=== PATIENT | female | born 1935 | race American Indian/Alaskan Native ===

== ENCOUNTER 2022-02-17 15:34 | Inpatient (IN) | payer MEDICARE ==
--- NOTE | 2022-02-17 16:06 | Emergency Department Report ---
HPI - General Chief Complaint: Syncope Time Seen by Provider: 02/17/22 15:47 - HPI HPI: Room 2 The patient is a 86-year-old female present with chief complaint of syncope. Per EMS patient was in the shower being bathed by the home health nurse when gio morgan suddenly went limp. Health nurse was able to catch the patient and did not allow her to fall to the ground. There was no seizure activity noted. EMS was called and arrived on scene at 1506 to find the patient slumped over in a chair being supported by the home health aide with incomprehensible speech. EMS states during this time although the patient speech was incomprehensible the patient was following commands but only with her right side. EMS states that 1518 the patient speech was clear and at that time she was able to move both sides of her body equally ED Past Medical Hx - Past Medical History Previous Medical History?: No Additional medical history: Unknown - Surgical History Hx Pacemaker: Yes - Family History Family history: no significant - Social History Smoking Status: Never Smoker Substance Use Type: None ED Review of Systems ROS: Stated complaint: SYNCOPE Other details as noted in HPI Constitutional: no symptoms reported Eyes: denies: eye pain ENT: denies: throat pain Respiratory: no symptoms reported Cardiovascular: denies: chest pain Endocrine: no symptoms reported Gastrointestinal: denies: abdominal pain Genitourinary: denies: dysuria Musculoskeletal: denies: back pain Neurological: weakness. denies: headache Physical Exam - Physical Exam Vital Signs: Vital Signs 02/17/22 15:38 Temperature 98.2 F Pulse Rate 62 Respiratory 14 Rate Blood Pressure 152/90 [Left] O2 Sat by Pulse 97 Oximetry Physical Exam: GENERAL: The patient is well-developed well-nourished female lying on stretcher not appearing to be in acute distress. [] HEENT: Normocephalic. Atraumatic. Extraocular motions are intact. Patient has moist mucous membranes. NECK: Supple. Trachea midline CHEST/LUNGS: Clear to auscultation. There is no respiratory distress noted. HEART/CARDIOVASCULAR: Regular. There is no tachycardia. There is no gallop rub or murmur. ABDOMEN: Abdomen is soft, nontender. Patient has normal bowel sounds. There is no abdominal distention. SKIN: There is no rash. There is no edema. There is no diaphoresis. NEURO: The patient is awake, alert, and oriented. The patient is cooperative. The patient has no focal neurologic deficits. The patient has normal speech. Cranial nerves II through XII grossly intact. Patient moves all extremities well. Patient able to hold either upper extremity at 45 degree angle for 10- second count without drift. Patient able to hold either lower extremity of 30 degree angle for 5-second count without drift. GCS 15. Patient admits to equal sensation in the face bilaterally in upper extremities bilaterally but when asked about the legs the patient states she does not know. MUSCULOSKELETAL: There is no evidence of acute injury. ED Course Vital Signs 02/17/22 15:38 Temperature 98.2 F Pulse Rate 62 Respiratory 14 Rate Blood Pressure 152/90 [Left] O2 Sat by Pulse 97 Oximetry - Consultations Consultation #1: 02/17/22 16:20 Case discussed with [id number]. Recommends CTAs and admission for remainder of work-up 02/17/22 17:51 CTA results discussed with telemetry neurologist-no change in plan except otherwise we will recommend a statin in addition to aspirin. ED Medical Decision Making - Lab Data Result diagrams: 02/17/22 17:13 02/17/22 17:13 - Radiology Data Radiology results: report reviewed (CT head), image reviewed (CT head) interpreted by me: [facility] [address] [place] [address] Cat Scan Report Signed Patient: GLORIA STOCK MR#: [id number] : 1935 Acct:[id number] Age/Sex: 86 / F ADM Date: 02/17/22 Loc: ED Attending Dr: Ordering Physician: SHAN MCKEON MD Date of Service: 02/17/22 Procedure(s): CT head/brain wo con Accession Number(s): [id number] cc: SHAN MCKEON MD CT BRAIN: 02/17/2022 INDICATION / CLINICAL INFORMATION: Syncope, transient left-sided weakness. COMPARISON: None available. FINDINGS: BRAIN/INTRACRANIAL STRUCTURES: Unenhanced CT images of the brain demonstrate no evidence of acute abnormality. Ventricles and sulci are prominent in size, consistent with prominent age- related atrophic change. Chronic white matter hypoattenuation is present throughout the cerebral hemispheric white matter. There is no evidence of acute ischemic injury, hemorrhage, or mass. There are no abnormal extra- axial fluid collections. Atherosclerotic vascular calcifications are present in the distal internal carotid arteries and vertebral arteries. EXTRACRANIAL STRUCTURES: Unremarkable. IMPRESSION: No acute abnormality. Chronic and age-related changes All CT scans at this location are performed using dose reduction to ALARA by means of automated exposure control. Signer Name: Epi Calloway MD Signed: 02/17/2022 4:23 PM Workstation Name: [id number] Transcribed By: AO Dictated By: Epi Calloway MD Electronically Authenticated By: Epi Calloway MD Signed Date/Time: 02/17/221622 DD/ 19 TD/TT: - Differential Diagnosis TIA, syncope, dysrhythmia Critical care attestation.: If time is entered above; I have spent that time in minutes in the direct care of this critically ill patient, excluding procedure time. ED Disposition Clinical Impression: TIA (transient ischemic attack) Disposition: ADMITTED INPATIENT Is pt being admited?: Yes Does the pt Need Aspirin: Yes Condition: Fair Referrals: PRIMARY CARE, [Primary Care Provider] - 3-5 Days Time of Disposition: 18:16 (Care transferred to hospitalist (Dr. Villarreal))
[2022-02-17] MEDS ORDERED: ASPIRIN 325 MG TAB PO ONE (16:18)
--- NOTE | 2022-02-17 16:22 | Consultation ---
History of Present Illness Consult date: 02/17/22 History of present illness: [facility] Consult Note # Demographics Consult Type: Acute Stroke Level 1 (0-4.5 hrs) Patient Location: Emergency Room First Name: yamil Last Name: wesley Date of : 1935 Age: 86 Gender: Female Facility: [facility] Time of Initial Page (Eastern Time): 02/17/2022, 15:53 Time of Return Call (Eastern Time): 02/17/2022, 15:53 # HPI Chief Complaint: weakness (focal) Syncope History: Per ER staff, the home health aide reportedly found patient down with syncope & reported transient right-sided weakness. Unknown last known well time. Patient provided limited history, & there was no information in EMR or family available at bedside. The ER Physician stated, though that the home health aide was giving the patient a shower when she suddenly went completely limp. The patient came to & when EMS arrived around 3pm "was speaking gibberish." Symptoms reportedly resolved. Last Known Normal: I have collected independent history specific to time last normal or last known well. We have collaborated with the provider and at this time, we have the most current timeline with the information that is available. Possibly around 3pm Duration: resolved minutes hours # Scores Time of exam and NIHSS ( Time): 02/17/2022, 15:58 Level of Consciousness 1a: [0] = Alert; keenly responsive LOC Questions 1b: [2] = Answers neither correctly LOC Commands 1c: [0] = Performs both tasks correctly Best Gaze 2: [0] = Normal Visual 3: [0] = No visual loss Facial Palsy 4: [0] = Normal symmetrical movements Motor Arm Left 5a: [0] = No drift Motor Arm Right 5b: [0] = No drift Motor Leg Left 6a: [0] = No drift Motor Leg Right 6b: [0] = No drift Limb Ataxia 7: [0] = Absent Sensory 8: [0] = Normal Best Language 9: [0] = No aphasia Dysarthria 10: [0] = Normal Extinction and Inattention 11: [0] = No abnormality NIHSS Total: 2 Modified Radford Scale (mRS) pre-stroke: [0] = No Symptoms Modified Radford Scale total: 0 VAN Screening: Negative # Exam Vitals: 98.2 SBP: 152 DBP: 90 Mental Status: awake follows commands Did not state age or month; hard of hearing Language: normal speech # ROS Pulmonary: no shortness of breath Cardiovascular: no chest pain # Data Glucose: Pending Time Head CT personally read by me (Eastern Time): 02/17/2022, 16:[address]: no bleed preliminarily reviewed by me, please refer to radiology read for official reading # Assessment Impression: Syncope, ? TIA with reported transient right-sided weakness # Plan Thrombolytic/Intervention: NOT IV Thrombolysis or IA Intervention candidate Thrombolytic Exclusion (< 3 hour window): time of onset unclear non-disabling deficit Thrombolytic Exclusion: Unknown last known well initially, potentially 3pm; syncopal prodrome atypical for stroke presentation; symptoms reportedly resolved Target Blood Pressure: SBP < 220 Orthostatic vital sign Labs: ABG Ammonia B12 CBC comprehensive metabolic panel ESR hemoglobin A1c lipid panel thiamine troponin TSH urine drug screen ua Infectious work-up Imaging: (urgency: STAT): CT Angiogram Head and CT Angiogram Neck AND call back with results if abnormal Imaging: (urgency: routine): MRI Brain without contrast Diagnostic Test: echo without bubble study EEG Therapy/Evaluation: NPO until swallow evaluation PT/OT evaluation speech/swallow consultation Medication: aspirin 81 mg daily start statin with goal of LDL < 70 Given syncopal episode, low clinical suspicion for ischemia - consider starting low-dose aspirin pending diagnostic results DVT Prophylaxis: SCD chemical DVT prophylaxis Other: If patient has any neurological deterioration please call me back immediately permissive hypertension telemetry monitoring would not pursue stroke work-up if MRI is negative I have discussed my recommendations with the referring provider Avoid/ manage delirium triggers Disposition: admit # Demographics First Name: yamil Last Name: wesley Facility: [facility] Medications and Allergies Allergies Allergy/AdvReac Type Severity Reaction Status Date / Time Unable to Assess Allergy Verified 02/17/22 15:41 Physical Examination - Vital Signs Vital Signs: Vital Signs Temp Pulse Resp BP Pulse Ox 98.2 F 62 14 152/90 97 02/17/22 15:38 02/17/22 15:38 02/17/22 15:38 02/17/22 15:38 02/17/22 15:38
--- NOTE | 2022-02-17 16:28 | Cat Scan Report ---
CT BRAIN: 02/17/2022 INDICATION / CLINICAL INFORMATION: Syncope, transient left-sided weakness. COMPARISON: None available. FINDINGS: BRAIN/INTRACRANIAL STRUCTURES: Unenhanced CT images of the brain demonstrate no evidence of acute abn ormality. Ventricles and sulci are prominent in size, consistent with prominent age-related atrophic change. Chronic white matter hypoattenuation is present throughout the cerebral hemispheric white matter. There is no evidence of acute ischemic injury, hemorrhage, or mass. There are no abnormal extra-axial fluid collections. Atherosclerotic vascular calcifications are present in the distal internal carotid arteries and verte bral arteries. EXTRACRANIAL STRUCTURES: Unremarkable. IMPRESSION: No acute abnormality. Chronic and age-related changes All CT scans at this location are performed using dose reduction to ALARA by means of automated expos ure control. Signer Name: Epi Calloway MD Signed: 02/17/2022 4:23 PM Workstation Name: [id number]
--- NOTE | 2022-02-17 16:59 | Cat Scan Report ---
CT angio head, CT angio neck HISTORY: Syncope with transient left-sided weakness 77ml of [id number] COMPARISON: CT head from same day TECHNIQUE: CTA of the neck and head is performed after IV contrast. 3-D/MIP reformats were postproces sed. Percentage stenosis is determined by direct quantitative measurements of diseased internal melendez tid artery diameter compared with normal distal internal carotid artery reference segments or by crit eria similar to NASCET where applicable. All CT scans at this location are performed using CT dose re duction for ALARA by means of automated exposure control. FINDINGS: CTA NECK: Aortic arch: No significant abnormality. Cervical vertebral arteries: No occlusion or hemodynamically significant stenosis. Common Carotid arteries: No occlusion or hemodynamically significant stenosis. Internal carotid arteries: No occlusion or hemodynamically significant stenosis. CTA HEAD: Intracranial internal carotid arteries: No occlusion or significant stenosis. Anterior cerebral arteries: No occlusion or significant stenosis. Middle cerebral arteries: No occlusion or significant stenosis. 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 There is o cclusion seen within the right proximal V2 segment. There is distal reconstitution of the V2 segment and the right V3 and V4 segments are patent. The right hiatus patent. Basilar artery: No occlusion or significant stenosis. Posterior cerebral arteries: No occlusion or significant stenosis. No aneurysm. Additional findings: None. IMPRESSION: 1. 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 The distal neck and intracranial right vertebral artery is patent. No occlusion or significant stenosis of the bilateral carotid or left ve rtebral artery. 2. CTA HEAD: No occlusion or significant stenosis of the major intracranial vasculature. Signer Name: Messi Kan MD Signed: 02/17/2022 4:55 PM Workstation Name: [id number]
[2022-02-17 17:41] LABS: Basophils # (Auto) 0.1 K/mm3 (0.0-0.1); Basophils % (Auto) 0.6 % (0.0-1.8); Eosinophils # (Auto) 0.1 K/mm3 (0.0-0.4); Hematocrit 48.2 % (30.3-42.9); Hemoglobin 15.9 gm/dl (10.1-14.3); Lymphocytes # (Auto) 1.2 K/mm3 (1.2-5.4); Lymphocytes % (Auto) 11.5 % (13.4-35.0); Mean Corpuscular HGB Conc 33 % (30-34); Mean Corpuscular Volume 87 fl (79-97); Monocytes # (Auto) 0.5 K/mm3 (0.0-0.8); Platelet Count 277 K/mm3 (140-440); Red Blood Count 5.56 M/mm3 (3.65-5.03); Red Cell Distribution Width 14.4 % (13.2-15.2)
[2022-02-17 17:50] LABS: INR 1.03 (0.87-1.13)
[2022-02-17 17:51] LABS: Partial Thromboplastin Time 29.6 Sec. (24.2-36.6)
[2022-02-17 18:07] LABS: BUN/Creatinine Ratio 8; Blood Urea Nitrogen 7 mg/dL (7-17); Calcium 10.2 mg/dL (8.4-10.2); Creatine Kinase MB 1.4 ng/mL (0.0-4.0); Hemolysis Index 22
[2022-02-17 18:13] LABS: Free T4 (Free Thyroxine) 1.15 ng/dL (0.76-1.46)
[2022-02-17] MEDS ORDERED: POTASSIUM CHLORIDE ER 20 MEQ TAB PO ONE ×2 (18:15→22:30)
[2022-02-17] MEDS ORDERED: MAGNESIUM SULFATE 2 GM/50 ML BAG IV ONE ×2 (18:15→22:30)
--- NOTE | 2022-02-17 21:08 | History and Physical Report ---
History of Present Illness Date of examination: 02/17/22 Date of admission: 02/17/2022 Chief complaint: Passed out while home health aide was giving shower this a.m. History of present illness: 86-year-old with no significant past medical history except for pacemaker b rought in by EMS for passing out while taking shower with the help of home health aide. Patient is currently ventilated and passed out. Home health aide was able to stop the fall to the ground. No seizure activity. Patient was slumped over in a chair when the EMS arrived. Patient was having an incomprehensible speech when the EMS arrived.Improved overall in 1 hour. No fever or chills. No chest pain. - Past Medical History --Pacemaker Additional medical history: Unknown - Surgical History --Pacemaker: Yes - Family History --Family history: no significant - Social History --Smoking Status: Never Smoker --Substance Use Type: None Review of Systems ROS: Constitutional no weight loss or weight gain no fever or chills HEENT no sore throat no post nasal drip no diplopia Neck no neck stiffness no lymph gland enlargement Chest and lungs no shortness of breath cough or wheezing CVS no chest pain no diaphoresis no palpitations GI no nausea no vomiting no diarrhea Genitourinary system no dysuria no flank pain Musculoskeletal system no muscle pains no joint pains DIRECTOR APPOINTMENT passed out while taking shower Skin no rash no itching Psychiatric no depression no homicidal or suicidal tendencies Hematologic no lymphedema or bruising Endocrine no polydipsia no polyuria no cold intolerance no heat intolerance Medications and Allergies Allergies Allergy/AdvReac Type Severity Reaction Status Date / Time No Known Allergies Allergy Verified 02/17/22 17:44 Home Medications Medication Instructions Recorded Confirmed Last Taken Type Amlodipine Besylate [Norvasc] 5 mg PO 02/18/22 Unknown History Metoprolol [Lopressor] 25 mg PO BID 02/18/22 02/18/22 Unknown History Exam - Constitutional Vitals: Temp Pulse Resp BP Pulse Ox 98.2 F 50 L 15 188/75 98 02/17/22 15:38 02/17/22 19:30 02/17/22 19:30 02/17/22 19:30 02/17/22 19:30 General appearance: Present: no acute distress, well-nourished - EENT Eyes: Present: PERRL ENT: hearing intact, clear oral mucosa - Neck Neck: Present: supple, normal ROM - Respiratory Respiratory effort: normal Respiratory: bilateral: CTA - Cardiovascular Heart rate: 78 Rhythm: regular Heart Sounds: Present: S1 & S2. Absent: rub, click - Extremities Extremities: no ischemia, pulses intact, pulses symmetrical, No edema Peripheral Pulses: within normal limits - Abdominal General gastrointestinal: Present: soft, non-tender, non-distended, normal bowel sounds Female genitourinary: Present: normal - Rectal Rectal Exam: deferred - Integumentary Integumentary: Present: clear, warm, dry - Musculoskeletal Musculoskeletal: gait normal, strength equal bilaterally - Psychiatric Psychiatric: appropriate mood/affect, intact judgment & insight, cooperative - Neurologic Neurologic: CNII-XII intact, moves all extremities - Allied Health Allied health notes reviewed: nursing, social work, case management HEART Score - HEART Score History: Moderately suspicious Age: > 65 Risk factors: No known risk factors Troponin: Troponin T < 0.010 ng/mL (0.00-0.029) 02/17/22 17:13 Troponin: < normal limit - Critical Actions Critical Actions: 0-3 pts:0.9-1.7%risk of adverse cardiac event.Candidate for discharge Results - Labs CBC & Chem 7: 02/18/22 05:24 02/17/22 17:13 Labs: Laboratory Last Values WBC 10.7 K/mm3 (4.5-11.0) 02/17/22 17:13 RBC 5.56 M/mm3 (3.65-5.03) H 02/17/22 17:13 Hgb 15.9 gm/dl (10.1-14.3) H 02/17/22 17:13 Hct 48.2 % (30.3-42.9) H 02/17/22 17:13 MCV 87 fl (79-97) 02/17/22 17:13 MCH 29 pg (28-32) 02/17/22 17:13 MCHC 33 % (30-34) 02/17/22 17:13 RDW 14.4 % (13.2-15.2) 02/17/22 17:13 Plt Count 277 K/mm3 (140-440) 02/17/22 17:13 Lymph % (Auto) 11.5 % (13.4-35.0) L 02/17/22 17:13 Gaston % (Auto) 5.0 % (0.0-7.3) 02/17/22 17:13 Eos % (Auto) 1.0 % (0.0-4.3) 02/17/22 17:13 Baso % (Auto) 0.6 % (0.0-1.8) 02/17/22 17:13 Lymph # (Auto) 1.2 K/mm3 (1.2-5.4) 02/17/22 17:13 Gaston # (Auto) 0.5 K/mm3 (0.0-0.8) 02/17/22 17:13 Eos # (Auto) 0.1 K/mm3 (0.0-0.4) 02/17/22 17:13 Baso # (Auto) 0.1 K/mm3 (0.0-0.1) 02/17/22 17:13 Seg Neutrophils % 81.9 % (40.0-70.0) H 02/17/22 17:13 Seg Neutrophils # 8.7 K/mm3 (1.8-7.7) H 02/17/22 17:13 PT 14.7 Sec. (12.2-14.9) 02/17/22 17:13 INR 1.03 (0.87-1.13) 02/17/22 17:13 APTT 29.6 Sec. (24.2-36.6) 02/17/22 17:13 VBG pH 7.374 (7.320-7.420) 02/17/22 17:13 Sodium 141 mmol/L (137-145) 02/17/22 17:13 Potassium 3.1 mmol/L (3.6-5.0) L 02/17/22 17:13 Chloride 99.4 mmol/L (98-107) 02/17/22 17:13 Carbon Dioxide 29 mmol/L (22-30) 02/17/22 17:13 Anion Gap 16 mmol/L 02/17/22 17:13 BUN 7 mg/dL (7-17) 02/17/22 17:13 Creatinine 0.9 mg/dL (0.6-1.2) 02/17/22 17:13 Estimated GFR > 60 ml/min 02/17/22 17:13 BUN/Creatinine Ratio 8 % 02/17/22 17:13 Glucose 135 mg/dL (65-100) H 02/17/22 17:13 Calcium 10.2 mg/dL (8.4-10.2) 02/17/22 17:13 Magnesium 1.50 mg/dL (1.7-2.3) L 02/17/22 17:13 Total Creatine Kinase 48 units/L (30-135) 02/17/22 17:13 CK-MB (CK-2) 1.4 ng/mL (0.0-4.0) 02/17/22 17:13 CK-MB (CK-2) Rel Index 2.9 (0-4) 02/17/22 17:13 Troponin T < 0.010 ng/mL (0.00-0.029) 02/17/22 17:13 TSH 2.670 mlU/mL (0.270-4.200) 02/17/22 17:13 Free T4 1.15 ng/dL (0.76-1.46) 02/17/22 17:13 Short CBC 02/17/22 02/18/22 Range/Units 17:13 05:24 WBC 10.7 7.8 (4.5-11.0) K/mm3 Hgb 15.9 H 14.4 H (10.1-14.3) gm/dl Hct 48.2 H 45.0 H (30.3-42.9) % Plt Count 277 290 (140-440) K/mm3 BMP 02/17/22 17:13 Sodium 141 Potassium 3.1 L Chloride 99.4 Carbon Dioxide 29 BUN 7 Creatinine 0.9 Glucose 135 H Calcium 10.2 Cardiac Enzymes 02/17/22 Range/Units 17:13 Total Creatine Kinase 48 (30-135) units/L CK-MB (CK-2) 1.4 (0.0-4.0) ng/mL Troponin T < 0.010 (0.00-0.029) ng/mL - Imaging and Cardiology EKG: report reviewed (Pacemaker rhythm, no acute ST-T wave changes) Imaging and Cardiology: Head CT No acute abnormalities head Head and neck CTA 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 There is distal neck and intracranial right vertebral artery is patent. No occlusion or significant stenosis of the bilateral carotid left vertebral art andrew. CT of the head no occlusion or significant stenosis of the major intracranial vasculature. Assessment and Plan Advance Directives: Yes (Full code) VTE prophylaxis?: Chemical Plan of care discussed with patient/family: Yes - Patient Problems (1) Syncope and collapse Current Visit: Yes Status: Acute Plan to address problem: Vasovagal IV fluids Carotid duplex scan Echocardiogram (2) TIA (transient ischemic attack) Current Visit: Yes Status: Acute Plan to address problem: Dysarthria for 1 hour TIA likely involved is a low suspicion TIA work-up Neurology consult requested (3) Pacemaker Current Visit: Yes Status: Chronic Plan to address problem: Functioning normally No need for pacemaker and ejection (4) Hypokalemia Current Visit: Yes Status: Acute Plan to address problem: Supplemented (5) Hypomagnesemia Current Visit: Yes Status: Acute Plan to address problem: Supplemented (6) DVT prophylaxis Current Visit: Yes Status: Acute Plan to address problem: On heparin and GI prophylaxis (7) Advance care planning Current Visit: Yes Status: Acute Plan to address problem: Care plan discussed disease education conducted, diagnosis discussed and prognosis discussed. Patient acknowledges understanding of care plan. +30 minutes. Patient is full code.
[2022-02-17] MEDS ORDERED: oxyCODONE /ACETAMINOPHEN 5-325MG TAB PO PRN (21:14)
[2022-02-17] MEDS ORDERED: ACETAMINOPHEN 325 MG TAB PO PRN (21:14)
[2022-02-17] MEDS ORDERED: ONDANSETRON 4 MG/2 ML INJ IV PRN (21:14)
[2022-02-17] MEDS ORDERED: MORPHINE 2 MG/1 ML INJ IV PRN (21:14)
[2022-02-17] MEDS ORDERED: SODIUM CHLORIDE 0.9% 1000 ML 1,000 ML IV SCH (21:15)
[2022-02-17] MEDS: HEPARIN 5,000 UNIT/1 ML VIAL SUB-Q SCH (23:11)
[2022-02-17] MEDS: FAMOTIDINE 20 MG TAB PO SCH (23:16)
[2022-02-18] MEDS: hydrALAZINE 20 MG/1 ML INJ IV PRN (01:57)
[2022-02-18 06:06] LABS: Basophils # (Auto) 0.1 K/mm3 (0.0-0.1); Basophils % (Auto) 0.9 % (0.0-1.8); Eosinophils # (Auto) 0.2 K/mm3 (0.0-0.4); Eosinophils % (Auto) 2.4 % (0.0-4.3); Hemoglobin 14.4 gm/dl (10.1-14.3); Lymphocytes # (Auto) 2.1 K/mm3 (1.2-5.4); Mean Corpuscular HGB Conc 32 % (30-34); Mean Corpuscular Volume 88 fl (79-97); Monocytes # (Auto) 0.8 K/mm3 (0.0-0.8); Platelet Count 290 K/mm3 (140-440); Red Blood Count 5.14 M/mm3 (3.65-5.03); Red Cell Distribution Width 14.1 % (13.2-15.2)
[2022-02-18 06:27] LABS: Albumin 3.4 g/dL (3.9-5); Blood Urea Nitrogen 7 mg/dL (7-17); Calcium 9.8 mg/dL (8.4-10.2); Hemolysis Index 4
[2022-02-18 06:28] LABS: Alanine Aminotransferase < 5 units/L (7-56); BUN/Creatinine Ratio 10
[2022-02-18] MEDS ORDERED: MAGNESIUM SULFATE 2 GM/50 ML BAG IV ONE (07:29)
[2022-02-18] MEDS ORDERED: POTASSIUM CHLORIDE ER 20 MEQ TAB PO ONE (07:29)
--- NOTE | 2022-02-18 09:55 | Electrocardiograph Report ---
[facility] Test Date: 2022-02-17 Test Time: 17:01:14 Pat Name: DAYAMI CASTRO Department: Room: A458 1 Gender: F Lehr Loader: RUBY : 1935 Requested By: SHAN MCKEON Order Number: [id number] Reading MD: Darío Palacio Measurements Intervals [place] Rate: 57 P: 0 ME: 73 QRS: -60 QRSD: 183 T: 145 QT: 533 QTc: 519 Interpretive Statements Ventricular-paced rhythm No previous ECG available for comparison Electronically Signed On 02-18-2022 9:55:06 EDT by Darío Palacio
[2022-02-18] MEDS ORDERED: NIFEdipine XL 30 MG TAB PO SCH (10:00)
[2022-02-18] MEDS ORDERED: amLODIPine 5 MG TAB PO SCH (10:00)
[2022-02-18] MEDS: METOPROLOL TARTRATE 25 MG TAB PO SCH ×2 (10:50→22:10)
--- NOTE | 2022-02-18 11:48 | Progress Note ---
Assessment and Plan Assessment and plan: #Syncope and fall #Possible TIA Unremarkable CT head noncontrast and CT angio head and neck Pending TTE to evaluate for possible ASD versus PFO. Hemoglobin A1c 5.7. Pending lipid profile. Neurology consulted; pending recs Will be unable to obtain MRI brain given pacemaker status. #Uncontrolled hypertension - home medications: Amlodipine 5 mg daily, metoprolol tartrate 25 mg twice daily - current medications: Nifedipine 30 mg daily, metoprolol tartrate 25 mg twice daily - SBP goal <160 and DBP goal <90 while inpatient - continue to monitor #Current pacemaker Currently functioning appropriately. No need for intervention. #Hypokalemiaresolved Potassium 3.6 #Hypomagnesemia Magnesium 1.5 Patient refusing repletion #Mild protein caloric malnutrition Albumin 3.4 Starting dietary supplementation #Advanced care planning -Disease education conducted, care plan discussed, diagnoses discussed, pro gnosis discussed, and patient acknowledges understanding with care plan -Time: +30 min #Discharge planning - Patient is pending neurology evaluation, TTE read - Case management has been made aware. - Discharge is tentatively tomorrow Disposition Plan: Continue medical management Total Time Spent with Patient (Minutes): 45 minutes History Interval history: No acute events overnight. Hospitalist Physical - Constitutional Vitals: Temp Pulse Resp BP Pulse Ox 98.0 F 59 L 18 202/75 95 02/18/22 08:01 02/18/22 08:01 02/18/22 08:01 02/18/22 08:01 02/18/22 08:01 General appearance: Present: no acute distress, well-nourished, other (Demented at baseline) - EENT Eyes: Present: PERRL, EOM intact ENT: hearing intact, clear oral mucosa - Neck Neck: Present: supple, normal ROM - Respiratory Respiratory effort: normal - Cardiovascular Rhythm: regular Heart Sounds: Present: S1 & S2 - Extremities Extremities: no ischemia, pulses intact, pulses symmetrical, No edema, normal temperature, normal color Peripheral Pulses: within normal limits - Abdominal General gastrointestinal: soft, non-tender, non-distended, normal bowel sounds - Integumentary Integumentary: Present: clear, warm, dry - Psychiatric Psychiatric: agitated, other (Unable to follow directions despite repeated atte mpts ) - Neurologic Neurologic: CNII-XII intact, moves all extremities - Allied Health Allied health notes reviewed: nursing HEART Score - HEART Score Age: > 65 Risk factors: No known risk factors Troponin: Troponin T < 0.010 ng/mL (0.00-0.029) 02/17/22 17:13 Troponin: < normal limit - Critical Actions Critical Actions: 0-3 pts:0.9-1.7%risk of adverse cardiac event.Candidate for discharge Results - Labs CBC & Chem 7: 02/18/22 05:24 02/18/22 05:24 Labs: Laboratory Last Values WBC 7.8 K/mm3 (4.5-11.0) 02/18/22 05:24 RBC 5.14 M/mm3 (3.65-5.03) H 02/18/22 05:24 Hgb 14.4 gm/dl (10.1-14.3) H 02/18/22 05:24 Hct 45.0 % (30.3-42.9) H 02/18/22 05:24 MCV 88 fl (79-97) 02/18/22 05:24 MCH 28 pg (28-32) 02/18/22 05:24 MCHC 32 % (30-34) 02/18/22 05:24 RDW 14.1 % (13.2-15.2) 02/18/22 05:24 Plt Count 290 K/mm3 (140-440) 02/18/22 05:24 Lymph % (Auto) 27.0 % (13.4-35.0) 02/18/22 05:24 [place] % (Auto) 10.0 % (0.0-7.3) H 02/18/22 05:24 Eos % (Auto) 2.4 % (0.0-4.3) 02/18/22 05:24 Baso % (Auto) 0.9 % (0.0-1.8) 02/18/22 05:24 Lymph # (Auto) 2.1 K/mm3 (1.2-5.4) 02/18/22 05:24 [place] # (Auto) 0.8 K/mm3 (0.0-0.8) 02/18/22 05:24 Eos # (Auto) 0.2 K/mm3 (0.0-0.4) 02/18/22 05:24 Baso # (Auto) 0.1 K/mm3 (0.0-0.1) 02/18/22 05:24 Seg Neutrophils % 59.7 % (40.0-70.0) 02/18/22 05:24 Seg Neutrophils # 4.6 K/mm3 (1.8-7.7) 02/18/22 05:24 PT 14.7 Sec. (12.2-14.9) 02/17/22 17:13 INR 1.03 (0.87-1.13) 02/17/22 17:13 APTT 29.6 Sec. (24.2-36.6) 02/17/22 17:13 VBG pH 7.374 (7.320-7.420) 02/17/22 17:13 Sodium 144 mmol/L (137-145) 02/18/22 05:24 Potassium 3.6 mmol/L (3.6-5.0) 02/18/22 05:24 Chloride 102.7 mmol/L (98-107) 02/18/22 05:24 Carbon Dioxide 27 mmol/L (22-30) 02/18/22 05:24 Anion Gap 18 mmol/L 02/18/22 05:24 BUN 7 mg/dL (7-17) 02/18/22 05:24 Creatinine 0.7 mg/dL (0.6-1.2) 02/18/22 05:24 Estimated GFR > 60 ml/min 02/18/22 05:24 BUN/Creatinine Ratio 10 % 02/18/22 05:24 Glucose 91 mg/dL (65-100) 02/18/22 05:24 POC Glucose 104 mg/dL (70-105) 02/18/22 07:56 Hemoglobin A1c 5.7 % (4-6) 02/18/22 05:24 Calcium 9.8 mg/dL (8.4-10.2) 02/18/22 05:24 Magnesium 1.50 mg/dL (1.7-2.3) L 02/17/22 17:13 Total Bilirubin 0.30 mg/dL (0.1-1.2) 02/18/22 05:24 AST 12 units/L (5-40) 02/18/22 05:24 ALT < 5 units/L (7-56) L 02/18/22 05:24 Alkaline Phosphatase 81 units/L (35-129) 02/18/22 05:24 Total Creatine Kinase 48 units/L (30-135) 02/17/22 17:13 CK-MB (CK-2) 1.4 ng/mL (0.0-4.0) 02/17/22 17:13 CK-MB (CK-2) Rel Index 2.9 (0-4) 02/17/22 17:13 Troponin T < 0.010 ng/mL (0.00-0.029) 02/17/22 17:13 Total Protein 6.4 g/dL (6.3-8.2) 02/18/22 05:24 Albumin 3.4 g/dL (3.9-5) L 02/18/22 05:24 Albumin/Globulin Ratio 1.1 % 02/18/22 05:24 TSH 2.670 mlU/mL (0.270-4.200) 02/17/22 17:13 Free T4 1.15 ng/dL (0.76-1.46) 02/17/22 17:13 [place]illed[place]/IV: Voiding Method External Female Catheter Active Medications - Current Medications Current Medications: Generic Name Dose Route Start Last Admin Trade Name Freq PRN Reason Stop Dose Admin Acetaminophen 650 mg 02/17/22 21:14 Acetaminophen 325 Mg Tab PO Q4H PRN Pain MILD(1-3)/Fever >100.5/BOWERS Famotidine 20 mg 02/17/22 22:00 02/17/22 23:16 Famotidine 20 Mg Tab PO 20 mg BID LAITH Administration Heparin Sodium (Porcine) 5,000 unit 02/17/22 22:00 02/17/22 23:11 Heparin 5,000 Unit/1 Ml Vial SUB-Q 5,000 unit Q12HR LAITH Administration Hydralazine HCl 10 mg 02/18/22 01:22 02/18/22 01:57 Hydralazine 20 Mg/1 Ml Inj IV 10 mg Q6H PRN Administration Hypertension Metoprolol Tartrate 25 mg 02/18/22 10:00 Metoprolol Tartrate 25 Mg Tab PO BID [facility] Morphine Sulfate 2 mg 02/17/22 21:14 Morphine 2 Mg/1 Ml Inj IV Q4H PRN Pain, Moderate (4-6) Nifedipine 30 mg 02/18/22 10:00 Nifedipine Xl 30 Mg Tab PO QDAY LAITH Ondansetron HCl 4 mg 02/17/22 21:14 Ondansetron 4 Mg/2 Ml Inj IV Q8H PRN Nausea And Vomiting Oxycodone/Acetaminophen 1 tab 02/17/22 21:14 Oxycodone /Acetaminophen 5-325mg Tab PO Q6H PRN Pain, Moderate (4-6) Sodium Chloride 10 ml 02/17/22 22:00 02/17/22 23:16 Sodium Chloride 0.9% 10 Ml Flush Syringe IV 10 ml BID LAITH Administration Sodium Chloride 10 ml 02/17/22 21:14 Sodium Chloride 0.9% 10 Ml Flush Syringe IV PRN PRN LINE FLUSH
[2022-02-18] MEDS: FAMOTIDINE 20 MG TAB PO SCH ×2 (12:49→22:10)
[2022-02-18] MEDS: HEPARIN 5,000 UNIT/1 ML VIAL SUB-Q SCH ×2 (12:50→22:10)
[2022-02-18 19:20] LABS: Chol/HDL Ratio 3.43 %
[2022-02-19] MEDS: hydrALAZINE 20 MG/1 ML INJ IV PRN (04:54)
[2022-02-19] MEDS ORDERED: NIFEdipine XL 30 MG TAB PO SCH (07:24)
[2022-02-19] MEDS ORDERED: POTASSIUM CHLORIDE ER 20 MEQ TAB PO SCH (07:30)
[2022-02-19 08:42] LABS: Blood Urea Nitrogen 6 mg/dL (7-17); Calcium 9.6 mg/dL (8.4-10.2); Hemolysis Index 2
[2022-02-19 08:46] LABS: BUN/Creatinine Ratio 10
[2022-02-19] MEDS: NIFEdipine XL 60 MG TAB PO SCH (09:26)
[2022-02-19] MEDS: FAMOTIDINE 20 MG TAB PO SCH ×2 (09:27→21:14)
[2022-02-19] MEDS: LOSARTAN 50 MG TAB PO SCH (09:27)
[2022-02-19] MEDS: HEPARIN 5,000 UNIT/1 ML VIAL SUB-Q SCH ×2 (09:27→21:15)
--- NOTE | 2022-02-19 14:37 | Progress Note ---
Assessment and Plan Assessment and plan: #Syncope and fall #Possible TIAruled out Unremarkable CT head noncontrast and CT angio head and neck TTE (02/18/2022) revealing EF 45% with normal-sized LV, normal to mildly decreased LV systolic function, mild concentric LVH, mildly hypokinetic RV, normal LA, normal RA, aneurysmal atrial septum, RVSP is 46 mmHg, and unremarkable for PFO. Hemoglobin A1c 5.7. Lipid panel: Triglycerides 135, cholesterol 134, LDL 65, HDL 39 Will be unable to obtain MRI brain given pacemaker status. #Uncontrolled hypertension - home medications: Amlodipine 5 mg daily, metoprolol tartrate 25 mg twice daily - current medications: Nifedipine 30 mg daily, metoprolol tartrate 25 mg twice daily - SBP goal <160 and DBP goal <90 while inpatient - continue to monitor #Current pacemaker Currently functioning appropriately. No need for intervention. #Hypokalemiaresolved Potassium 3.6 #Hypomagnesemia Magnesium 1.5 Patient refusing repletion #Mild protein caloric malnutrition Albumin 3.4 Continue dietary supplementation #Advanced care planning -Disease education conducted, care plan discussed, diagnoses discussed, prognosis discussed, and patient acknowledges understanding with care plan -Time: +30 min #Discharge planning - Patient is pending PT/OT evaluation as the patient's family is recommending placement. - Case management has been made aware. Disposition Plan: Continue medical management Total Time Spent with Patient (Minutes): 45 min History Interval history: No acute events overnight. Hospitalist Physical - Constitutional Vitals: Temp Pulse Resp BP Pulse Ox 98.7 F 50 L 18 165/58 97 02/19/22 11:25 02/19/22 11:25 02/19/22 11:25 02/19/22 11:25 02/19/22 11:25 General appearance: Present: no acute distress, well-nourished, other (Demented at baseline) - EENT Eyes: Present: PERRL, EOM intact ENT: hearing intact, clear oral mucosa, dentition normal - Neck Neck: Present: supple, normal ROM - Respiratory Respiratory effort: normal Respiratory: bilateral: CTA - Cardiovascular Rhythm: regular Heart Sounds: Present: S1 & S2 - Extremities Extremities: no ischemia, pulses intact, pulses symmetrical, No edema, normal temperature, normal color, Full ROM Peripheral Pulses: within normal limits - Abdominal General gastrointestinal: soft, non-tender, non-distended, normal bowel sounds - Integumentary Integumentary: Present: clear, warm, dry - Psychiatric Psychiatric: other (Pleasantly demented; requires frequent redirection) - Neurologic Neurologic: CNII-XII intact, moves all extremities - Allied Health Allied health notes reviewed: nursing, case management HEART Score - HEART Score Age: > 65 Risk factors: No known risk factors Troponin: Troponin T < 0.010 ng/mL (0.00-0.029) 02/17/22 17:13 Troponin: < normal limit - Critical Actions Critical Actions: 0-3 pts:0.9-1.7%risk of adverse cardiac event.Candidate for discharge Results - Labs CBC & Chem 7: 02/18/22 05:24 02/19/22 07:45 Labs: Laboratory Last Values WBC 7.8 K/mm3 (4.5-11.0) 02/18/22 05:24 RBC 5.14 M/mm3 (3.65-5.03) H 02/18/22 05:24 Hgb 14.4 gm/dl (10.1-14.3) H 02/18/22 05:24 Hct 45.0 % (30.3-42.9) H 02/18/22 05:24 MCV 88 fl (79-97) 02/18/22 05:24 MCH 28 pg (28-32) 02/18/22 05:24 MCHC 32 % (30-34) 02/18/22 05:24 RDW 14.1 % (13.2-15.2) 02/18/22 05:24 Plt Count 290 K/mm3 (140-440) 02/18/22 05:24 Lymph % (Auto) 27.0 % (13.4-35.0) 02/18/22 05:24 [place] % (Auto) 10.0 % (0.0-7.3) H 02/18/22 05:24 Eos % (Auto) 2.4 % (0.0-4.3) 02/18/22 05:24 Baso % (Auto) 0.9 % (0.0-1.8) 02/18/22 05:24 Lymph # (Auto) 2.1 K/mm3 (1.2-5.4) 02/18/22 05:24 [place] # (Auto) 0.8 K/mm3 (0.0-0.8) 02/18/22 05:24 Eos # (Auto) 0.2 K/mm3 (0.0-0.4) 02/18/22 05:24 Baso # (Auto) 0.1 K/mm3 (0.0-0.1) 02/18/22 05:24 Seg Neutrophils % 59.7 % (40.0-70.0) 02/18/22 05:24 Seg Neutrophils # 4.6 K/mm3 (1.8-7.7) 02/18/22 05:24 PT 14.7 Sec. (12.2-14.9) 02/17/22 17:13 INR 1.03 (0.87-1.13) 02/17/22 17:13 APTT 29.6 Sec. (24.2-36.6) 02/17/22 17:13 VBG pH 7.374 (7.320-7.420) 02/17/22 17:13 Sodium 141 mmol/L (137-145) 02/19/22 07:45 Potassium 3.1 mmol/L (3.6-5.0) L 02/19/22 07:45 Chloride 100.8 mmol/L (98-107) 02/19/22 07:45 Carbon Dioxide 29 mmol/L (22-30) 02/19/22 07:45 Anion Gap 14 mmol/L 02/19/22 07:45 BUN 6 mg/dL (7-17) L 02/19/22 07:45 Creatinine 0.6 mg/dL (0.6-1.2) 02/19/22 07:45 Estimated GFR > 60 ml/min 02/19/22 07:45 BUN/Creatinine Ratio 10 % 02/19/22 07:45 Glucose 88 mg/dL (65-100) 02/19/22 07:45 POC Glucose 104 mg/dL (70-105) 02/18/22 07:56 Hemoglobin A1c 5.7 % (4-6) 02/18/22 05:24 Calcium 9.6 mg/dL (8.4-10.2) 02/19/22 07:45 Magnesium 1.90 mg/dL (1.7-2.3) 02/18/22 17:35 Total Bilirubin 0.30 mg/dL (0.1-1.2) 02/18/22 05:24 AST 12 units/L (5-40) 02/18/22 05:24 ALT < 5 units/L (7-56) L 02/18/22 05:24 Alkaline Phosphatase 81 units/L (35-129) 02/18/22 05:24 Total Creatine Kinase 48 units/L (30-135) 02/17/22 17:13 CK-MB (CK-2) 1.4 ng/mL (0.0-4.0) 02/17/22 17:13 CK-MB (CK-2) Rel Index 2.9 (0-4) 02/17/22 17:13 Troponin T < 0.010 ng/mL (0.00-0.029) 02/17/22 17:13 Total Protein 6.4 g/dL (6.3-8.2) 02/18/22 05:24 Albumin 3.4 g/dL (3.9-5) L 02/18/22 05:24 Albumin/Globulin Ratio 1.1 % 02/18/22 05:24 Triglycerides 135 mg/dL (2-149) 02/18/22 17:35 Cholesterol 134 mg/dL (50-199) 02/18/22 17:35 LDL Cholesterol Direct 65 mg/dL (50-130) 02/18/22 17:35 HDL Cholesterol 39 mg/dL (40-59) L 02/18/22 17:35 Cholesterol/HDL Ratio 3.43 % 02/18/22 17:35 TSH 2.670 mlU/mL (0.270-4.200) 02/17/22 17:13 Free T4 1.15 ng/dL (0.76-1.46) 02/17/22 17:13 Villed[place]/IV: Voiding Method External Female Catheter Active Medications - Current Medications Current Medications: Generic Name Dose Route Start Last Admin Trade Name Freq PRN Reason Stop Dose Admin Acetaminophen 650 mg 02/17/22 21:14 Acetaminophen 325 Mg Tab PO Q4H PRN Pain MILD(1-3)/Fever >100.5/BOWERS Famotidine 20 mg 02/17/22 22:00 02/19/22 09:27 Famotidine 20 Mg Tab PO 20 mg BID LAITH Administration Heparin Sodium (Porcine) 5,000 unit 02/17/22 22:00 02/19/22 09:27 Heparin 5,000 Unit/1 Ml Vial SUB-Q 5,000 unit Q12HR LAITH Administration Hydralazine HCl 10 mg 02/18/22 01:22 02/19/22 04:54 Hydralazine 20 Mg/1 Ml Inj IV 10 mg Q6H PRN Administration Hypertension Losartan Potassium 50 mg 02/19/22 10:00 02/19/22 09:27 Losartan 50 Mg Tab PO 50 mg QDAY LAITH Administration Morphine Sulfate 2 mg 02/17/22 21:14 Morphine 2 Mg/1 Ml Inj IV Q4H PRN Pain, Moderate (4-6) Nifedipine 60 mg 02/19/22 10:00 02/19/22 09:26 Nifedipine Xl 60 Mg Tab PO 60 mg QDAY LAITH Administration Ondansetron HCl 4 mg 02/17/22 21:14 Ondansetron 4 Mg/2 Ml Inj IV Q8H PRN Nausea And Vomiting Oxycodone/Acetaminophen 1 tab 02/17/22 21:14 Oxycodone /Acetaminophen 5-325mg Tab PO Q6H PRN Pain, Moderate (4-6) Sodium Chloride 10 ml 02/17/22 22:00 02/19/22 09:28 Sodium Chloride 0.9% 10 Ml Flush Syringe IV 10 ml BID LAITH Administration Sodium Chloride 10 ml 02/17/22 21:14 02/19/22 04:56 Sodium Chloride 0.9% 10 Ml Flush Syringe IV 10 ml PRN PRN Administration LINE FLUSH
[2022-02-20 05:54] LABS: BUN/Creatinine Ratio 10; Blood Urea Nitrogen 8 mg/dL (7-17); Calcium 9.6 mg/dL (8.4-10.2); Hemolysis Index 1
[2022-02-20] MEDS ORDERED: POTASSIUM CHLORIDE ER 20 MEQ TAB PO ONE (07:45)
--- NOTE | 2022-02-20 08:37 | Progress Note ---
Assessment and Plan Assessment and plan: #Syncope and fall #Possible TIAruled out Unremarkable CT head noncontrast and CT angio head and neck TTE (02/18/2022) revealing EF 45% with normal-sized LV, normal to mildly decreased LV systolic function, mild concentric LVH, mildly hypokinetic RV, normal LA, normal RA, aneurysmal atrial septum, RVSP is 46 mmHg, and unremarkable for PFO. Hemoglobin A1c 5.7. Lipid panel: Triglycerides 135, cholesterol 134, LDL 65, HDL 39 Will be unable to obtain MRI brain given pacemaker status. PT/OT recommending subacute rehab. Pending authorization for subacute rehab versus SNF placement. #Uncontrolled hypertensionimproved - home medications: Amlodipine 5 mg daily, metoprolol tartrate 25 mg twice daily - current medications: Nifedipine 60 mg daily, losartan 50 mg daily metoprolol tartrate 25 mg twice daily - SBP goal <160 and DBP goal <90 while inpatient - continue to monitor #Current pacemaker Currently functioning appropriately. No need for intervention. #Hypokalemiaresolved Potassium 3.6 #Hypomagnesemia Magnesium 1.5 Patient refusing repletion #Mild protein caloric malnutrition Albumin 3.4 Continue dietary supplementation #Advanced care planning -Disease education conducted, care plan discussed, diagnoses discussed, prognosis discussed, and patient acknowledges understanding with care plan -Time: +30 min #Discharge planning - Patient is pending authorization for subacute rehab versus SNF placement per family request - Case management has been made aware. Disposition Plan: Pending SNF placement Total Time Spent with Patient (Minutes): 45 minutes History Interval history: No acute events overnight. Hospitalist Physical - Constitutional Vitals: Temp Pulse Resp BP Pulse Ox 98.3 F 50 L 18 128/55 96 02/20/22 07:44 02/20/22 07:44 02/20/22 07:44 02/20/22 07:44 02/20/22 07:44 General appearance: Present: no acute distress, well-nourished, other (Demented at baseline) - EENT Eyes: Present: PERRL, EOM intact ENT: hearing intact, clear oral mucosa, dentition normal - Neck Neck: Present: supple, normal ROM - Respiratory Respiratory effort: normal Respiratory: bilateral: CTA - Cardiovascular Rhythm: regular Heart Sounds: Present: S1 & S2 - Extremities Extremities: no ischemia, pulses intact, pulses symmetrical, No edema, normal temperature, normal color, Full ROM Peripheral Pulses: within normal limits - Abdominal General gastrointestinal: soft, non-tender, non-distended, normal bowel sounds - Integumentary Integumentary: Present: clear, warm, dry - Psychiatric Psychiatric: appropriate mood/affect, other (Pleasantly demented and requires redirection) - Neurologic Neurologic: CNII-XII intact, moves all extremities - Allied Health Allied health notes reviewed: nursing, case management HEART Score - HEART Score Age: > 65 Risk factors: No known risk factors Troponin: Troponin T < 0.010 ng/mL (0.00-0.029) 02/17/22 17:13 Troponin: < normal limit - Critical Actions Critical Actions: 0-3 pts:0.9-1.7%risk of adverse cardiac event.Candidate for discharge Results - Labs CBC & Chem 7: 02/18/22 05:24 02/20/22 04:58 Labs: Laboratory Last Values WBC 7.8 K/mm3 (4.5-11.0) 02/18/22 05:24 RBC 5.14 M/mm3 (3.65-5.03) H 02/18/22 05:24 Hgb 14.4 gm/dl (10.1-14.3) H 02/18/22 05:24 Hct 45.0 % (30.3-42.9) H 02/18/22 05:24 MCV 88 fl (79-97) 02/18/22 05:24 MCH 28 pg (28-32) 02/18/22 05:24 MCHC 32 % (30-34) 02/18/22 05:24 RDW 14.1 % (13.2-15.2) 02/18/22 05:24 Plt Count 290 K/mm3 (140-440) 02/18/22 05:24 Lymph % (Auto) 27.0 % (13.4-35.0) 02/18/22 05:24 [place] % (Auto) 10.0 % (0.0-7.3) H 02/18/22 05:24 Eos % (Auto) 2.4 % (0.0-4.3) 02/18/22 05:24 Baso % (Auto) 0.9 % (0.0-1.8) 02/18/22 05:24 Lymph # (Auto) 2.1 K/mm3 (1.2-5.4) 02/18/22 05:24 [place] # (Auto) 0.8 K/mm3 (0.0-0.8) 02/18/22 05:24 Eos # (Auto) 0.2 K/mm3 (0.0-0.4) 02/18/22 05:24 Baso # (Auto) 0.1 K/mm3 (0.0-0.1) 02/18/22 05:24 Seg Neutrophils % 59.7 % (40.0-70.0) 02/18/22 05:24 Seg Neutrophils # 4.6 K/mm3 (1.8-7.7) 02/18/22 05:24 PT 14.7 Sec. (12.2-14.9) 02/17/22 17:13 INR 1.03 (0.87-1.13) 02/17/22 17:13 APTT 29.6 Sec. (24.2-36.6) 02/17/22 17:13 VBG pH 7.374 (7.320-7.420) 02/17/22 17:13 Sodium 142 mmol/L (137-145) 02/20/22 04:58 Potassium 3.5 mmol/L (3.6-5.0) L 02/20/22 04:58 Chloride 103.9 mmol/L (98-107) 02/20/22 04:58 Carbon Dioxide 27 mmol/L (22-30) 02/20/22 04:58 Anion Gap 15 mmol/L 02/20/22 04:58 BUN 8 mg/dL (7-17) 02/20/22 04:58 Creatinine 0.8 mg/dL (0.6-1.2) 02/20/22 04:58 Estimated GFR > 60 ml/min 02/20/22 04:58 BUN/Creatinine Ratio 10 % 02/20/22 04:58 Glucose 91 mg/dL (65-100) 02/20/22 04:58 POC Glucose 104 mg/dL (70-105) 02/18/22 07:56 Hemoglobin A1c 5.7 % (4-6) 02/18/22 05:24 Calcium 9.6 mg/dL (8.4-10.2) 02/20/22 04:58 Magnesium 1.90 mg/dL (1.7-2.3) 02/18/22 17:35 Total Bilirubin 0.30 mg/dL (0.1-1.2) 02/18/22 05:24 AST 12 units/L (5-40) 02/18/22 05:24 ALT < 5 units/L (7-56) L 02/18/22 05:24 Alkaline Phosphatase 81 units/L (35-129) 02/18/22 05:24 Total Creatine Kinase 48 units/L (30-135) 02/17/22 17:13 CK-MB (CK-2) 1.4 ng/mL (0.0-4.0) 02/17/22 17:13 CK-MB (CK-2) Rel Index 2.9 (0-4) 02/17/22 17:13 Troponin T < 0.010 ng/mL (0.00-0.029) 02/17/22 17:13 Total Protein 6.4 g/dL (6.3-8.2) 02/18/22 05:24 Albumin 3.4 g/dL (3.9-5) L 02/18/22 05:24 Albumin/Globulin Ratio 1.1 % 02/18/22 05:24 Triglycerides 135 mg/dL (2-149) 02/18/22 17:35 Cholesterol 134 mg/dL (50-199) 02/18/22 17:35 LDL Cholesterol Direct 65 mg/dL (50-130) 02/18/22 17:35 HDL Cholesterol 39 mg/dL (40-59) L 02/18/22 17:35 Cholesterol/HDL Ratio 3.43 % 02/18/22 17:35 TSH 2.670 mlU/mL (0.270-4.200) 02/17/22 17:13 Free T4 1.15 ng/dL (0.76-1.46) 02/17/22 17:13 [place]/IV: Voiding Method External Female Catheter Active Medications - Current Medications Current Medications: Generic Name Dose Route Start Last Admin Trade Name Freq PRN Reason Stop Dose Admin Acetaminophen 650 mg 02/17/22 21:14 Acetaminophen 325 Mg Tab PO Q4H PRN Pain MILD(1-3)/Fever >100.5/BOWERS Famotidine 20 mg 02/17/22 22:00 02/19/22 21:14 Famotidine 20 Mg Tab PO 20 mg BID LAITH Administration Heparin Sodium (Porcine) 5,000 unit 02/17/22 22:00 02/19/22 21:15 Heparin 5,000 Unit/1 Ml Vial SUB-Q 5,000 unit Q12HR LAITH Administration Hydralazine HCl 10 mg 02/18/22 01:22 02/19/22 04:54 Hydralazine 20 Mg/1 Ml Inj IV 10 mg Q6H PRN Administration Hypertension Losartan Potassium 50 mg 02/19/22 10:00 02/19/22 09:27 Losartan 50 Mg Tab PO 50 mg QDAY LAITH Administration Morphine Sulfate 2 mg 02/17/22 21:14 Morphine 2 Mg/1 Ml Inj IV Q4H PRN Pain, Moderate (4-6) Nifedipine 60 mg 02/19/22 10:00 02/19/22 09:26 Nifedipine Xl 60 Mg Tab PO 60 mg QDAY LAITH Administration Ondansetron HCl 4 mg 02/17/22 21:14 Ondansetron 4 Mg/2 Ml Inj IV Q8H PRN Nausea And Vomiting Oxycodone/Acetaminophen 1 tab 02/17/22 21:14 Oxycodone /Acetaminophen 5-325mg Tab PO Q6H PRN Pain, Moderate (4-6) Sodium Chloride 10 ml 02/17/22 22:00 02/19/22 21:15 Sodium Chloride 0.9% 10 Ml Flush Syringe IV 10 ml BID LAITH Administration Sodium Chloride 10 ml 02/17/22 21:14 02/19/22 04:56 Sodium Chloride 0.9% 10 Ml Flush Syringe IV 10 ml PRN PRN Administration LINE FLUSH
[2022-02-20] MEDS: FAMOTIDINE 20 MG TAB PO SCH ×2 (09:15→21:31)
[2022-02-20] MEDS: NIFEdipine XL 60 MG TAB PO SCH (09:15)
[2022-02-20] MEDS: LOSARTAN 50 MG TAB PO SCH (09:15)
[2022-02-20] MEDS: HEPARIN 5,000 UNIT/1 ML VIAL SUB-Q SCH ×2 (09:16→21:31)
--- NOTE | 2022-02-21 09:09 | Progress Note ---
Assessment and Plan Assessment and plan: #Syncope and fall #Possible TIAruled out Unremarkable CT head noncontrast and CT angio head and neck TTE (02/18/2022) revealing EF 45% with normal-sized LV, normal to mildly decreased LV systolic function, mild concentric LVH, mildly hypokinetic RV, normal LA, normal RA, aneurysmal atrial septum, RVSP is 46 mmHg, and unremarkable for PFO. Hemoglobin A1c 5.7. Lipid panel: Triglycerides 135, cholesterol 134, LDL 65, HDL 39 Will be unable to obtain MRI brain given pacemaker status. PT/OT recommending subacute rehab. Pending authorization for subacute rehab versus SNF placement. #Uncontrolled hypertensionresolved - home medications: Amlodipine 5 mg daily, metoprolol tartrate 25 mg twice daily - current medications: Nifedipine 60 mg daily, losartan 50 mg daily metoprolol tartrate 25 mg twice daily - SBP goal <160 and DBP goal <90 while inpatient - continue to monitor #Current pacemaker Currently functioning appropriately. No need for intervention. #Hypokalemiaresolved Potassium 3.6 #Hypomagnesemia Magnesium 1.5 Patient refused IV repletion. Starting po supplementation. #Mild protein caloric malnutrition Albumin 3.4 Continue dietary supplementation #Advanced care planning -Disease education conducted, care plan discussed, diagnoses discussed, prognosis discussed, and patient acknowledges understanding with care plan -Time: +30 min #Discharge planning - Patient is pending authorization for subacute rehab versus SNF placement per family request - Case management has been made aware. Disposition Plan: Pending placement Total Time Spent with Patient (Minutes): 30 min History Interval history: No acute events overnight. Hospitalist Physical - Constitutional Vitals: Temp Pulse Resp BP Pulse Ox 97.4 F L 50 L 20 164/61 98 02/21/22 04:04 02/21/22 04:04 02/21/22 04:04 02/21/22 04:04 02/21/22 04:04 General appearance: Present: no acute distress, well-nourished, other (Demented at baseline) - EENT Eyes: Present: PERRL, EOM intact ENT: hearing intact, clear oral mucosa, dentition normal - Neck Neck: Present: supple, normal ROM - Respiratory Respiratory effort: normal Respiratory: bilateral: CTA - Cardiovascular Rhythm: regular Heart Sounds: Present: S1 & S2 - Extremities Extremities: no ischemia, pulses intact, pulses symmetrical, No edema, normal temperature, normal color, Full ROM Peripheral Pulses: within normal limits - Abdominal General gastrointestinal: soft, non-tender, non-distended, normal bowel sounds - Integumentary Integumentary: Present: clear, warm, dry - Psychiatric Psychiatric: appropriate mood/affect - Neurologic Neurologic: CNII-XII intact, moves all extremities - Allied Health Allied health notes reviewed: nursing, case management HEART Score - HEART Score Age: > 65 Risk factors: No known risk factors Troponin: Troponin T < 0.010 ng/mL (0.00-0.029) 02/17/22 17:13 Troponin: < normal limit - Critical Actions Critical Actions: 0-3 pts:0.9-1.7%risk of adverse cardiac event.Candidate for discharge Results - Labs CBC & Chem 7: 02/18/22 05:24 02/20/22 04:58 Labs: Laboratory Last Values WBC 7.8 K/mm3 (4.5-11.0) 02/18/22 05:24 RBC 5.14 M/mm3 (3.65-5.03) H 02/18/22 05:24 Hgb 14.4 gm/dl (10.1-14.3) H 02/18/22 05:24 Hct 45.0 % (30.3-42.9) H 02/18/22 05:24 MCV 88 fl (79-97) 02/18/22 05:24 MCH 28 pg (28-32) 02/18/22 05:24 MCHC 32 % (30-34) 02/18/22 05:24 RDW 14.1 % (13.2-15.2) 02/18/22 05:24 Plt Count 290 K/mm3 (140-440) 02/18/22 05:24 Lymph % (Auto) 27.0 % (13.4-35.0) 02/18/22 05:24 [place] % (Auto) 10.0 % (0.0-7.3) H 02/18/22 05:24 Eos % (Auto) 2.4 % (0.0-4.3) 02/18/22 05:24 Baso % (Auto) 0.9 % (0.0-1.8) 02/18/22 05:24 Lymph # (Auto) 2.1 K/mm3 (1.2-5.4) 02/18/22 05:24 [place] # (Auto) 0.8 K/mm3 (0.0-0.8) 02/18/22 05:24 Eos # (Auto) 0.2 K/mm3 (0.0-0.4) 02/18/22 05:24 Baso # (Auto) 0.1 K/mm3 (0.0-0.1) 02/18/22 05:24 Seg Neutrophils % 59.7 % (40.0-70.0) 02/18/22 05:24 Seg Neutrophils # 4.6 K/mm3 (1.8-7.7) 02/18/22 05:24 PT 14.7 Sec. (12.2-14.9) 02/17/22 17:13 INR 1.03 (0.87-1.13) 02/17/22 17:13 APTT 29.6 Sec. (24.2-36.6) 02/17/22 17:13 VBG pH 7.374 (7.320-7.420) 02/17/22 17:13 Sodium 142 mmol/L (137-145) 02/20/22 04:58 Potassium 3.5 mmol/L (3.6-5.0) L 02/20/22 04:58 Chloride 103.9 mmol/L (98-107) 02/20/22 04:58 Carbon Dioxide 27 mmol/L (22-30) 02/20/22 04:58 Anion Gap 15 mmol/L 02/20/22 04:58 BUN 8 mg/dL (7-17) 02/20/22 04:58 Creatinine 0.8 mg/dL (0.6-1.2) 02/20/22 04:58 Estimated GFR > 60 ml/min 02/20/22 04:58 BUN/Creatinine Ratio 10 % 02/20/22 04:58 Glucose 91 mg/dL (65-100) 02/20/22 04:58 POC Glucose 104 mg/dL (70-105) 02/18/22 07:56 Hemoglobin A1c 5.7 % (4-6) 02/18/22 05:24 Calcium 9.6 mg/dL (8.4-10.2) 02/20/22 04:58 Magnesium 1.90 mg/dL (1.7-2.3) 02/18/22 17:35 Total Bilirubin 0.30 mg/dL (0.1-1.2) 02/18/22 05:24 AST 12 units/L (5-40) 02/18/22 05:24 ALT < 5 units/L (7-56) L 02/18/22 05:24 Alkaline Phosphatase 81 units/L (35-129) 02/18/22 05:24 Total Creatine Kinase 48 units/L (30-135) 02/17/22 17:13 CK-MB (CK-2) 1.4 ng/mL (0.0-4.0) 02/17/22 17:13 CK-MB (CK-2) Rel Index 2.9 (0-4) 02/17/22 17:13 Troponin T < 0.010 ng/mL (0.00-0.029) 02/17/22 17:13 Total Protein 6.4 g/dL (6.3-8.2) 02/18/22 05:24 Albumin 3.4 g/dL (3.9-5) L 02/18/22 05:24 Albumin/Globulin Ratio 1.1 % 02/18/22 05:24 Triglycerides 135 mg/dL (2-149) 02/18/22 17:35 Cholesterol 134 mg/dL (50-199) 02/18/22 17:35 LDL Cholesterol Direct 65 mg/dL (50-130) 02/18/22 17:35 HDL Cholesterol 39 mg/dL (40-59) L 02/18/22 17:35 Cholesterol/HDL Ratio 3.43 % 02/18/22 17:35 TSH 2.670 mlU/mL (0.270-4.200) 02/17/22 17:13 Free T4 1.15 ng/dL (0.76-1.46) 02/17/22 17:13 Coronavirus (PCR) Negative (Negative) 02/20/22 11:18 [place]/IV: Voiding Method Toilet Active Medications - Current Medications Current Medications: Generic Name Dose Route Start Last Admin Trade Name Freq PRN Reason Stop Dose Admin Acetaminophen 650 mg 02/17/22 21:14 Acetaminophen 325 Mg Tab PO Q4H PRN Pain MILD(1-3)/Fever >100.5/BOWERS Famotidine 20 mg 02/17/22 22:00 02/20/22 21:31 Famotidine 20 Mg Tab PO Not Given BID [facility] Heparin Sodium (Porcine) 5,000 unit 02/17/22 22:00 02/20/22 21:31 Heparin 5,000 Unit/1 Ml Vial SUB-Q Not Given Q12HR [facility] Hydralazine HCl 10 mg 02/18/22 01:22 02/19/22 04:54 Hydralazine 20 Mg/1 Ml Inj IV 10 mg Q6H PRN Administration Hypertension Losartan Potassium 50 mg 02/19/22 10:00 02/20/22 09:15 Losartan 50 Mg Tab PO 50 mg QDAY [facility] Administration Morphine Sulfate 2 mg 02/17/22 21:14 Morphine 2 Mg/1 Ml Inj IV Q4H PRN Pain, Moderate (4-6) Nifedipine 60 mg 02/19/22 10:00 02/20/22 09:15 Nifedipine Xl 60 Mg Tab PO 60 mg QDAY [facility] Administration Ondansetron HCl 4 mg 02/17/22 21:14 Ondansetron 4 Mg/2 Ml Inj IV Q8H PRN Nausea And Vomiting Oxycodone/Acetaminophen 1 tab 02/17/22 21:14 Oxycodone /Acetaminophen 5-325mg Tab PO Q6H PRN Pain, Moderate (4-6) Sodium Chloride 10 ml 02/17/22 22:00 02/20/22 21:31 Sodium Chloride 0.9% 10 Ml Flush Syringe IV Not Given BID [facility] Sodium Chloride 10 ml 02/17/22 21:14 02/19/22 04:56 Sodium Chloride 0.9% 10 Ml Flush Syringe IV 10 ml PRN PRN Administration LINE FLUSH
[2022-02-21 09:25] LABS: BUN/Creatinine Ratio 11; Blood Urea Nitrogen 10 mg/dL (7-17); Hemolysis Index 1
[2022-02-21] MEDS: NIFEdipine XL 60 MG TAB PO SCH (11:12)
[2022-02-21] MEDS: LOSARTAN 50 MG TAB PO SCH (11:12)
[2022-02-21] MEDS: FAMOTIDINE 20 MG TAB PO SCH ×2 (11:14→22:14)
[2022-02-21] MEDS: MAGNESIUM OXIDE 400 MG TAB PO SCH (11:14)
[2022-02-21] MEDS: HEPARIN 5,000 UNIT/1 ML VIAL SUB-Q SCH ×2 (11:15→22:15)
--- NOTE | 2022-02-22 11:03 | Progress Note ---
Assessment and Plan Assessment and plan: #Syncope and fall #Possible TIAruled out Unremarkable CT head noncontrast and CT angio head and neck TTE (02/18/2022) revealing EF 45% with normal-sized LV, normal to mildly decreased LV systolic function, mild concentric LVH, mildly hypokinetic RV, normal LA, normal RA, aneurysmal atrial septum, RVSP is 46 mmHg, and unremarkable for PFO. Hemoglobin A1c 5.7. Lipid panel: Triglycerides 135, cholesterol 134, LDL 65, HDL 39 Will be unable to obtain MRI brain given pacemaker status. PT/OT recommending subacute rehab. Pending authorization for subacute rehab versus SNF placement. #Uncontrolled hypertensionresolved - home medications: Amlodipine 5 mg daily, metoprolol tartrate 25 mg twice daily - current medications: Nifedipine 60 mg daily, losartan 50 mg daily metoprolol tartrate 25 mg twice daily - SBP goal <160 and DBP goal <90 while inpatient - continue to monitor #Current pacemaker Currently functioning appropriately. No need for intervention. #Hypokalemiaresolved Potassium 3.6 #Hypomagnesemia Magnesium 1.5 Patient refused IV repletion. Continue po supplementation. #Mild protein caloric malnutrition Albumin 3.4 Continue dietary supplementation #Advanced care planning -Disease education conducted, care plan discussed, diagnoses discussed, prognosis discussed, and patient acknowledges understanding with care plan -Time: +30 min #Discharge planning - Patient is pending authorization for subacute rehab versus SNF placement per family request - Case management has been made aware. Disposition Plan: Pending placement Total Time Spent with Patient (Minutes): 45 min History Interval history: No acute events overnight. Hospitalist Physical - Constitutional Vitals: Temp Pulse Resp BP Pulse Ox 98 F 50 L 20 140/66 99 02/22/22 04:53 02/22/22 04:53 02/22/22 04:53 02/22/22 04:53 02/22/22 04:53 General appearance: Present: no acute distress, well-nourished, other (Demented at baseline) - EENT Eyes: Present: PERRL, EOM intact ENT: hearing intact, clear oral mucosa, dentition normal - Neck Neck: Present: supple, normal ROM - Respiratory Respiratory effort: normal Respiratory: bilateral: CTA - Cardiovascular Rhythm: regular Heart Sounds: Present: S1 & S2 - Extremities Extremities: no ischemia, pulses intact, pulses symmetrical, No edema, normal temperature, normal color Peripheral Pulses: within normal limits - Abdominal General gastrointestinal: soft, non-tender, non-distended, normal bowel sounds - Integumentary Integumentary: Present: clear, warm, dry - Psychiatric Psychiatric: appropriate mood/affect - Neurologic Neurologic: CNII-XII intact, moves all extremities - Allied Health Allied health notes reviewed: nursing HEART Score - HEART Score Age: > 65 Risk factors: No known risk factors Troponin: Troponin T < 0.010 ng/mL (0.00-0.029) 02/17/22 17:13 Troponin: < normal limit - Critical Actions Critical Actions: 0-3 pts:0.9-1.7%risk of adverse cardiac event.Candidate for discharge Results - Labs CBC & Chem 7: 02/18/22 05:24 02/21/22 07:45 Labs: Laboratory Last Values WBC 7.8 K/mm3 (4.5-11.0) 02/18/22 05:24 RBC 5.14 M/mm3 (3.65-5.03) H 02/18/22 05:24 Hgb 14.4 gm/dl (10.1-14.3) H 02/18/22 05:24 Hct 45.0 % (30.3-42.9) H 02/18/22 05:24 MCV 88 fl (79-97) 02/18/22 05:24 MCH 28 pg (28-32) 02/18/22 05:24 MCHC 32 % (30-34) 02/18/22 05:24 RDW 14.1 % (13.2-15.2) 02/18/22 05:24 Plt Count 290 K/mm3 (140-440) 02/18/22 05:24 Lymph % (Auto) 27.0 % (13.4-35.0) 02/18/22 05:24 [place] % (Auto) 10.0 % (0.0-7.3) H 02/18/22 05:24 Eos % (Auto) 2.4 % (0.0-4.3) 02/18/22 05:24 Baso % (Auto) 0.9 % (0.0-1.8) 02/18/22 05:24 Lymph # (Auto) 2.1 K/mm3 (1.2-5.4) 02/18/22 05:24 [place] # (Auto) 0.8 K/mm3 (0.0-0.8) 02/18/22 05:24 Eos # (Auto) 0.2 K/mm3 (0.0-0.4) 02/18/22 05:24 Baso # (Auto) 0.1 K/mm3 (0.0-0.1) 02/18/22 05:24 Seg Neutrophils % 59.7 % (40.0-70.0) 02/18/22 05:24 Seg Neutrophils # 4.6 K/mm3 (1.8-7.7) 02/18/22 05:24 PT 14.7 Sec. (12.2-14.9) 02/17/22 17:13 INR 1.03 (0.87-1.13) 02/17/22 17:13 APTT 29.6 Sec. (24.2-36.6) 02/17/22 17:13 VBG pH 7.374 (7.320-7.420) 02/17/22 17:13 Sodium 143 mmol/L (137-145) 02/21/22 07:45 Potassium 4.1 mmol/L (3.6-5.0) 02/21/22 07:45 Chloride 105.3 mmol/L (98-107) 02/21/22 07:45 Carbon Dioxide 26 mmol/L (22-30) 02/21/22 07:45 Anion Gap 16 mmol/L 02/21/22 07:45 BUN 10 mg/dL (7-17) 02/21/22 07:45 Creatinine 0.9 mg/dL (0.6-1.2) 02/21/22 07:45 Estimated GFR > 60 ml/min 02/21/22 07:45 BUN/Creatinine Ratio 11 % 02/21/22 07:45 Glucose 96 mg/dL (65-100) 02/21/22 07:45 POC Glucose 104 mg/dL (70-105) 02/18/22 07:56 Hemoglobin A1c 5.7 % (4-6) 02/18/22 05:24 Calcium 10.0 mg/dL (8.4-10.2) 02/21/22 07:45 Magnesium 1.90 mg/dL (1.7-2.3) 02/18/22 17:35 Total Bilirubin 0.30 mg/dL (0.1-1.2) 02/18/22 05:24 AST 12 units/L (5-40) 02/18/22 05:24 ALT < 5 units/L (7-56) L 02/18/22 05:24 Alkaline Phosphatase 81 units/L (35-129) 02/18/22 05:24 Total Creatine Kinase 48 units/L (30-135) 02/17/22 17:13 CK-MB (CK-2) 1.4 ng/mL (0.0-4.0) 02/17/22 17:13 CK-MB (CK-2) Rel Index 2.9 (0-4) 02/17/22 17:13 Troponin T < 0.010 ng/mL (0.00-0.029) 02/17/22 17:13 Total Protein 6.4 g/dL (6.3-8.2) 02/18/22 05:24 Albumin 3.4 g/dL (3.9-5) L 02/18/22 05:24 Albumin/Globulin Ratio 1.1 % 02/18/22 05:24 Triglycerides 135 mg/dL (2-149) 02/18/22 17:35 Cholesterol 134 mg/dL (50-199) 02/18/22 17:35 LDL Cholesterol Direct 65 mg/dL (50-130) 02/18/22 17:35 HDL Cholesterol 39 mg/dL (40-59) L 02/18/22 17:35 Cholesterol/HDL Ratio 3.43 % 02/18/22 17:35 TSH 2.670 mlU/mL (0.270-4.200) 02/17/22 17:13 Free T4 1.15 ng/dL (0.76-1.46) 02/17/22 17:13 Coronavirus (PCR) Negative (Negative) 02/20/22 11:18 [place]/IV: Voiding Method External Female Catheter Active Medications - Current Medications Current Medications: Generic Name Dose Route Start Last Admin Trade Name Freq PRN Reason Stop Dose Admin Acetaminophen 650 mg 02/17/22 21:14 Acetaminophen 325 Mg Tab PO Q4H PRN Pain MILD(1-3)/Fever >100.5/BOWERS Famotidine 20 mg 02/17/22 22:00 02/21/22 22:14 Famotidine 20 Mg Tab PO 20 mg BID [facility] Administration Heparin Sodium (Porcine) 5,000 unit 02/17/22 22:00 02/21/22 22:15 Heparin 5,000 Unit/1 Ml Vial SUB-Q 5,000 unit Q12HR [facility] Administration Hydralazine HCl 10 mg 02/18/22 01:22 02/19/22 04:54 Hydralazine 20 Mg/1 Ml Inj IV 10 mg Q6H PRN Administration Hypertension Losartan Potassium 50 mg 02/19/22 10:00 02/21/22 11:12 Losartan 50 Mg Tab PO 50 mg QDAY [facility] Administration Magnesium Oxide 400 mg 02/21/22 10:00 02/21/22 11:14 Magnesium Oxide 400 Mg Tab PO 400 mg QDAY [facility] Administration Morphine Sulfate 2 mg 02/17/22 21:14 Morphine 2 Mg/1 Ml Inj IV Q4H PRN Pain, Moderate (4-6) Nifedipine 60 mg 02/19/22 10:00 02/21/22 11:12 Nifedipine Xl 60 Mg Tab PO 60 mg QDAY [facility] Administration Ondansetron HCl 4 mg 02/17/22 21:14 Ondansetron 4 Mg/2 Ml Inj IV Q8H PRN Nausea And Vomiting Oxycodone/Acetaminophen 1 tab 02/17/22 21:14 02/21/22 11:32 Oxycodone /Acetaminophen 5-325mg Tab PO 1 tab Q6H PRN Administration Pain, Moderate (4-6) Sodium Chloride 10 ml 02/17/22 22:00 02/21/22 22:15 Sodium Chloride 0.9% 10 Ml Flush Syringe IV 10 ml BID [facility] Administration Sodium Chloride 10 ml 02/17/22 21:14 02/19/22 04:56 Sodium Chloride 0.9% 10 Ml Flush Syringe IV 10 ml PRN PRN Administration LINE FLUSH
[2022-02-22] MEDS: LOSARTAN 50 MG TAB PO SCH (11:06)
[2022-02-22] MEDS: MAGNESIUM OXIDE 400 MG TAB PO SCH (11:06)
[2022-02-22] MEDS: HEPARIN 5,000 UNIT/1 ML VIAL SUB-Q SCH ×2 (11:06→21:29)
[2022-02-22] MEDS: NIFEdipine XL 60 MG TAB PO SCH (11:06)
[2022-02-22] MEDS: FAMOTIDINE 20 MG TAB PO SCH ×2 (11:07→21:29)
[2022-02-23] MEDS: MAGNESIUM OXIDE 400 MG TAB PO SCH (09:30)
[2022-02-23] MEDS: LOSARTAN 50 MG TAB PO SCH (09:30)
[2022-02-23] MEDS: FAMOTIDINE 20 MG TAB PO SCH ×2 (09:30→22:01)
[2022-02-23] MEDS: NIFEdipine XL 60 MG TAB PO SCH (09:30)
[2022-02-23] MEDS: HEPARIN 5,000 UNIT/1 ML VIAL SUB-Q SCH ×2 (09:30→22:01)
--- NOTE | 2022-02-23 12:47 | Progress Note ---
Assessment and Plan Assessment and plan: #Syncope and fall #Possible TIAruled out Unremarkable CT head noncontrast and CT angio head and neck TTE (02/18/2022) revealing EF 45% with normal-sized LV, normal to mildly decre ased LV systolic function, mild concentric LVH, mildly hypokinetic RV, normal LA, normal RA, aneurysmal atrial septum, RVSP is 46 mmHg, and unremarkable for PFO. Hemoglobin A1c 5.7. Lipid panel: Triglycerides 135, cholesterol 134, LDL 65, HDL 39 Will be unable to obtain MRI brain given pacemaker status. PT/OT recommending subacute rehab. Pending authorization for subacute rehab versus SNF placement. #Uncontrolled hypertensionresolved - home medications: Amlodipine 5 mg daily, metoprolol tartrate 25 mg twice daily - current medications: Nifedipine 60 mg daily, losartan 50 mg daily metoprolol tartrate 25 mg twice daily - SBP goal <160 and DBP goal <90 while inpatient - continue to monitor #Current pacemaker Currently functioning appropriately. No need for intervention. #Hypokalemiaresolved Potassium 3.6 #Hypomagnesemia Magnesium 1.5 Patient refused IV repletion. Continue po supplementation. #Mild protein caloric malnutrition Albumin 3.4 Continue dietary supplementation #Advanced care planning -Disease education conducted, care plan discussed, diagnoses discussed, prognosis discussed, and patient acknowledges understanding with care plan -Time: +30 min #Discharge planning - Patient is pending authorization for subacute rehab versus SNF placement per family request - Case management has been made aware. History Interval history: No acute events overnight. Patient alert and oriented x3. We discussed current care plan and she was agreeable. Currently she has no complaints at this time and reports feeling better than when she first was admitted. Hospitalist Physical - Physical exam Narrative exam: GENERAL: Thin elderly woman. In no acute distress. HEENT: Normocephalic. Atraumatic. NECK: Supple. CHEST/LUNGS: CTAB on room air HEART/CARDIOVASCULAR: RRR. No murmur, rubs or gallops appreciated. ABDOMEN: +BS. NT/ND. SKIN: No rashes noted. NEURO: No focal motor deficit. Follows all commands. MUSCULOSKELETAL: No joint effusion EXTREMITIES: No cyanosis, clubbing or edema. PSYCH: Cooperative. AAOx3. - Constitutional Vitals: Temp Pulse Resp BP Pulse Ox 98.1 F 52 L 17 143/60 95 08/30/22 11:38 02/23/22 11:38 02/23/22 11:38 02/23/22 11:38 02/23/22 11:38 General appearance: Present: no acute distress, well-nourished, other (Demented at baseline) HEART Score - HEART Score Age: > 65 Risk factors: No known risk factors Troponin: Troponin T < 0.010 ng/mL (0.00-0.029) 02/17/22 17:13 Troponin: < normal limit - Critical Actions Critical Actions: 0-3 pts:0.9-1.7%risk of adverse cardiac event.Candidate for discharge Results - Labs CBC & Chem 7: 02/18/22 05:24 02/21/22 07:45 Labs: Laboratory Last Values WBC 7.8 K/mm3 (4.5-11.0) 02/18/22 05:24 RBC 5.14 M/mm3 (3.65-5.03) H 02/18/22 05:24 Hgb 14.4 gm/dl (10.1-14.3) H 02/18/22 05:24 Hct 45.0 % (30.3-42.9) H 02/18/22 05:24 MCV 88 fl (79-97) 02/18/22 05:24 MCH 28 pg (28-32) 02/18/22 05:24 MCHC 32 % (30-34) 02/18/22 05:24 RDW 14.1 % (13.2-15.2) 02/18/22 05:24 Plt Count 290 K/mm3 (140-440) 02/18/22 05:24 Lymph % (Auto) 27.0 % (13.4-35.0) 02/18/22 05:24 [place] % (Auto) 10.0 % (0.0-7.3) H 02/18/22 05:24 Eos % (Auto) 2.4 % (0.0-4.3) 02/18/22 05:24 Baso % (Auto) 0.9 % (0.0-1.8) 02/18/22 05:24 Lymph # (Auto) 2.1 K/mm3 (1.2-5.4) 02/18/22 05:24 [place] # (Auto) 0.8 K/mm3 (0.0-0.8) 02/18/22 05:24 Eos # (Auto) 0.2 K/mm3 (0.0-0.4) 02/18/22 05:24 Baso # (Auto) 0.1 K/mm3 (0.0-0.1) 02/18/22 05:24 Seg Neutrophils % 59.7 % (40.0-70.0) 02/18/22 05:24 Seg Neutrophils # 4.6 K/mm3 (1.8-7.7) 02/18/22 05:24 PT 14.7 Sec. (12.2-14.9) 02/17/22 17:13 INR 1.03 (0.87-1.13) 02/17/22 17:13 APTT 29.6 Sec. (24.2-36.6) 02/17/22 17:13 VBG pH 7.374 (7.320-7.420) 02/17/22 17:13 Sodium 143 mmol/L (137-145) 02/21/22 07:45 Potassium 4.1 mmol/L (3.6-5.0) 02/21/22 07:45 Chloride 105.3 mmol/L (98-107) 02/21/22 07:45 Carbon Dioxide 26 mmol/L (22-30) 02/21/22 07:45 Anion Gap 16 mmol/L 02/21/22 07:45 BUN 10 mg/dL (7-17) 02/21/22 07:45 Creatinine 0.9 mg/dL (0.6-1.2) 02/21/22 07:45 Estimated GFR > 60 ml/min 02/21/22 07:45 BUN/Creatinine Ratio 11 % 02/21/22 07:45 Glucose 96 mg/dL (65-100) 02/21/22 07:45 POC Glucose 104 mg/dL (70-105) 02/18/22 07:56 Hemoglobin A1c 5.7 % (4-6) 02/18/22 05:24 Calcium 10.0 mg/dL (8.4-10.2) 02/21/22 07:45 Magnesium 1.90 mg/dL (1.7-2.3) 02/18/22 17:35 Total Bilirubin 0.30 mg/dL (0.1-1.2) 02/18/22 05:24 AST 12 units/L (5-40) 02/18/22 05:24 ALT < 5 units/L (7-56) L 02/18/22 05:24 Alkaline Phosphatase 81 units/L (35-129) 02/18/22 05:24 Total Creatine Kinase 48 units/L (30-135) 02/17/22 17:13 CK-MB (CK-2) 1.4 ng/mL (0.0-4.0) 02/17/22 17:13 CK-MB (CK-2) Rel Index 2.9 (0-4) 02/17/22 17:13 Troponin T < 0.010 ng/mL (0.00-0.029) 02/17/22 17:13 Total Protein 6.4 g/dL (6.3-8.2) 02/18/22 05:24 Albumin 3.4 g/dL (3.9-5) L 02/18/22 05:24 Albumin/Globulin Ratio 1.1 % 02/18/22 05:24 Triglycerides 135 mg/dL (2-149) 02/18/22 17:35 Cholesterol 134 mg/dL (50-199) 02/18/22 17:35 LDL Cholesterol Direct 65 mg/dL (50-130) 02/18/22 17:35 HDL Cholesterol 39 mg/dL (40-59) L 02/18/22 17:35 Cholesterol/HDL Ratio 3.43 % 02/18/22 17:35 TSH 2.670 mlU/mL (0.270-4.200) 02/17/22 17:13 Free T4 1.15 ng/dL (0.76-1.46) 02/17/22 17:13 Coronavirus (PCR) Negative (Negative) 02/20/22 11:18 [place]/IV: Voiding Method Toilet Active Medications - Current Medications Current Medications: Generic Name Dose Route Start Last Admin Trade Name Freq PRN Reason Stop Dose Admin Acetaminophen 650 mg 02/17/22 21:14 Acetaminophen 325 Mg Tab PO Q4H PRN Pain MILD(1-3)/Fever >100.5/BOWERS Famotidine 20 mg 02/17/22 22:00 02/23/22 09:30 Famotidine 20 Mg Tab PO 20 mg BID [facility] Administration Heparin Sodium (Porcine) 5,000 unit 02/17/22 22:00 02/23/22 09:30 Heparin 5,000 Unit/1 Ml Vial SUB-Q 5,000 unit Q12HR [facility] Administration Hydralazine HCl 10 mg 02/18/22 01:22 02/19/22 04:54 Hydralazine 20 Mg/1 Ml Inj IV 10 mg Q6H PRN Administration Hypertension Losartan Potassium 50 mg 02/19/22 10:00 02/23/22 09:30 Losartan 50 Mg Tab PO 50 mg QDAY [facility] Administration Magnesium Oxide 400 mg 02/21/22 10:00 02/23/22 09:30 Magnesium Oxide 400 Mg Tab PO 400 mg QDAY [facility] Administration Morphine Sulfate 2 mg 02/17/22 21:14 Morphine 2 Mg/1 Ml Inj IV Q4H PRN Pain, Moderate (4-6) Nifedipine 60 mg 02/19/22 10:00 02/23/22 09:30 Nifedipine Xl 60 Mg Tab PO 60 mg QDAY [facility] Administration Ondansetron HCl 4 mg 02/17/22 21:14 Ondansetron 4 Mg/2 Ml Inj IV Q8H PRN Nausea And Vomiting Oxycodone/Acetaminophen 1 tab 02/17/22 21:14 02/21/22 11:32 Oxycodone /Acetaminophen 5-325mg Tab PO 1 tab Q6H PRN Administration Pain, Moderate (4-6) Sodium Chloride 10 ml 02/17/22 22:00 02/23/22 09:30 Sodium Chloride 0.9% 10 Ml Flush Syringe IV 10 ml BID [facility] Administration Sodium Chloride 10 ml 02/17/22 21:14 02/19/22 04:56 Sodium Chloride 0.9% 10 Ml Flush Syringe IV 10 ml PRN PRN Administration LINE FLUSH
[2022-02-24] MEDS: MAGNESIUM OXIDE 400 MG TAB PO SCH (09:41)
[2022-02-24] MEDS: LOSARTAN 50 MG TAB PO SCH (09:41)
[2022-02-24] MEDS: FAMOTIDINE 20 MG TAB PO SCH ×2 (09:41→21:06)
[2022-02-24] MEDS: NIFEdipine XL 60 MG TAB PO SCH (09:42)
[2022-02-24] MEDS: HEPARIN 5,000 UNIT/1 ML VIAL SUB-Q SCH ×2 (09:43→21:06)
--- NOTE | 2022-02-24 14:09 | Progress Note ---
Assessment and Plan Assessment and plan: #Syncope and fall #Possible TIAruled out Unremarkable CT head noncontrast and CT angio head and neck TTE (02/18/2022) revealing EF 45% with normal-sized LV, normal to mildly decre ased LV systolic function, mild concentric LVH, mildly hypokinetic RV, normal LA, normal RA, aneurysmal atrial septum, RVSP is 46 mmHg, and unremarkable for PFO. Hemoglobin A1c 5.7. Lipid panel: Triglycerides 135, cholesterol 134, LDL 65, HDL 39 Will be unable to obtain MRI brain given pacemaker status. PT/OT recommending subacute rehab. Pending authorization for subacute rehab versus SNF placement. #Uncontrolled hypertensionresolved - home medications: Amlodipine 5 mg daily, metoprolol tartrate 25 mg twice daily - current medications: Nifedipine 60 mg daily, losartan 50 mg daily metoprolol tartrate 25 mg twice daily - SBP goal <160 and DBP goal <90 while inpatient - continue to monitor #Current pacemaker Currently functioning appropriately. No need for intervention. #Hypokalemiaresolved #Hypomagnesemia Magnesium 1.5 Patient refused IV repletion. Continue po supplementation. #Mild protein caloric malnutrition Albumin 3.4 Continue dietary supplementation #Advanced care planning -Disease education conducted, care plan discussed, diagnoses discussed, progno sis discussed, and patient acknowledges understanding with care plan -Time: +30 min #Discharge planning - Patient is pending authorization for subacute rehab versus SNF placement per family request - Case management has been made aware. History Interval history: No acute events overnight. Patient reports having issues with her memory, but otherwise she is doing "just fine". Currently awaiting SNF placement. Hospitalist Physical - Physical exam Narrative exam: GENERAL: Thin elderly woman. In no acute distress. HEENT: Normocephalic. Atraumatic. NECK: Supple. CHEST/LUNGS: CTAB on room air HEART/CARDIOVASCULAR: RRR. No murmur, rubs or gallops appreciated. ABDOMEN: +BS. NT/ND. SKIN: No rashes noted. NEURO: No focal motor deficit. Follows all commands. MUSCULOSKELETAL: No joint effusion EXTREMITIES: No cyanosis, clubbing or edema. PSYCH: Cooperative. AAOx3. - Constitutional Vitals: Temp Pulse Resp BP Pulse Ox 98.0 F 90 18 147/61 96 02/24/22 12:19 02/24/22 12:19 02/24/22 12:19 02/24/22 12:19 02/24/22 12:19 General appearance: Present: no acute distress, well-nourished, other (Demented at baseline) HEART Score - HEART Score Age: > 65 Risk factors: No known risk factors Troponin: Troponin T < 0.010 ng/mL (0.00-0.029) 02/17/22 17:13 Troponin: < normal limit - Critical Actions Critical Actions: 0-3 pts:0.9-1.7%risk of adverse cardiac event.Candidate for discharge Results - Labs CBC & Chem 7: 02/18/22 05:24 02/21/22 07:45 Labs: Laboratory Last Values WBC 7.8 K/mm3 (4.5-11.0) 02/18/22 05:24 RBC 5.14 M/mm3 (3.65-5.03) H 02/18/22 05:24 Hgb 14.4 gm/dl (10.1-14.3) H 02/18/22 05:24 Hct 45.0 % (30.3-42.9) H 02/18/22 05:24 MCV 88 fl (79-97) 02/18/22 05:24 MCH 28 pg (28-32) 02/18/22 05:24 MCHC 32 % (30-34) 02/18/22 05:24 RDW 14.1 % (13.2-15.2) 02/18/22 05:24 Plt Count 290 K/mm3 (140-440) 02/18/22 05:24 Lymph % (Auto) 27.0 % (13.4-35.0) 02/18/22 05:24 Lipscomb % (Auto) 10.0 % (0.0-7.3) H 02/18/22 05:24 Eos % (Auto) 2.4 % (0.0-4.3) 02/18/22 05:24 Baso % (Auto) 0.9 % (0.0-1.8) 02/18/22 05:24 Lymph # (Auto) 2.1 K/mm3 (1.2-5.4) 02/18/22 05:24 Lipscomb # (Auto) 0.8 K/mm3 (0.0-0.8) 02/18/22 05:24 Eos # (Auto) 0.2 K/mm3 (0.0-0.4) 02/18/22 05:24 Baso # (Auto) 0.1 K/mm3 (0.0-0.1) 02/18/22 05:24 Seg Neutrophils % 59.7 % (40.0-70.0) 02/18/22 05:24 Seg Neutrophils # 4.6 K/mm3 (1.8-7.7) 02/18/22 05:24 PT 14.7 Sec. (12.2-14.9) 02/17/22 17:13 INR 1.03 (0.87-1.13) 02/17/22 17:13 APTT 29.6 Sec. (24.2-36.6) 02/17/22 17:13 VBG pH 7.374 (7.320-7.420) 02/17/22 17:13 Sodium 143 mmol/L (137-145) 02/21/22 07:45 Potassium 4.1 mmol/L (3.6-5.0) 02/21/22 07:45 Chloride 105.3 mmol/L (98-107) 02/21/22 07:45 Carbon Dioxide 26 mmol/L (22-30) 02/21/22 07:45 Anion Gap 16 mmol/L 02/21/22 07:45 BUN 10 mg/dL (7-17) 02/21/22 07:45 Creatinine 0.9 mg/dL (0.6-1.2) 02/21/22 07:45 Estimated GFR > 60 ml/min 02/21/22 07:45 BUN/Creatinine Ratio 11 % 02/21/22 07:45 Glucose 96 mg/dL (65-100) 02/21/22 07:45 POC Glucose 104 mg/dL (70-105) 02/18/22 07:56 Hemoglobin A1c 5.7 % (4-6) 02/18/22 05:24 Calcium 10.0 mg/dL (8.4-10.2) 02/21/22 07:45 Magnesium 1.90 mg/dL (1.7-2.3) 02/18/22 17:35 Total Bilirubin 0.30 mg/dL (0.1-1.2) 02/18/22 05:24 AST 12 units/L (5-40) 02/18/22 05:24 ALT < 5 units/L (7-56) L 02/18/22 05:24 Alkaline Phosphatase 81 units/L (35-129) 02/18/22 05:24 Total Creatine Kinase 48 units/L (30-135) 02/17/22 17:13 CK-MB (CK-2) 1.4 ng/mL (0.0-4.0) 02/17/22 17:13 CK-MB (CK-2) Rel Index 2.9 (0-4) 02/17/22 17:13 Troponin T < 0.010 ng/mL (0.00-0.029) 02/17/22 17:13 Total Protein 6.4 g/dL (6.3-8.2) 02/18/22 05:24 Albumin 3.4 g/dL (3.9-5) L 02/18/22 05:24 Albumin/Globulin Ratio 1.1 % 02/18/22 05:24 Triglycerides 135 mg/dL (2-149) 02/18/22 17:35 Cholesterol 134 mg/dL (50-199) 02/18/22 17:35 LDL Cholesterol Direct 65 mg/dL (50-130) 02/18/22 17:35 HDL Cholesterol 39 mg/dL (40-59) L 02/18/22 17:35 Cholesterol/HDL Ratio 3.43 % 02/18/22 17:35 TSH 2.670 mlU/mL (0.270-4.200) 02/17/22 17:13 Free T4 1.15 ng/dL (0.76-1.46) 02/17/22 17:13 Coronavirus (PCR) Negative (Negative) 02/20/22 11:18 Villeda/IV: Voiding Method Toilet Active Medications - Current Medications Current Medications: Generic Name Dose Route Start Last Admin Trade Name Freq PRN Reason Stop Dose Admin Acetaminophen 650 mg 02/17/22 21:14 Acetaminophen 325 Mg Tab PO Q4H PRN Pain MILD(1-3)/Fever >100.5/BOWERS Famotidine 20 mg 02/17/22 22:00 02/24/22 09:41 Famotidine 20 Mg Tab PO 20 mg BID LAITH Administration Heparin Sodium (Porcine) 5,000 unit 02/17/22 22:00 02/24/22 09:43 Heparin 5,000 Unit/1 Ml Vial SUB-Q 5,000 unit Q12HR LAITH Administration Hydralazine HCl 10 mg 02/18/22 01:22 02/19/22 04:54 Hydralazine 20 Mg/1 Ml Inj IV 10 mg Q6H PRN Administration Hypertension Losartan Potassium 50 mg 02/19/22 10:00 02/24/22 09:41 Losartan 50 Mg Tab PO 50 mg QDAY LAITH Administration Magnesium Oxide 400 mg 02/21/22 10:00 02/24/22 09:41 Magnesium Oxide 400 Mg Tab PO 400 mg QDAY LAITH Administration Morphine Sulfate 2 mg 02/17/22 21:14 Morphine 2 Mg/1 Ml Inj IV Q4H PRN Pain, Moderate (4-6) Nifedipine 60 mg 02/19/22 10:00 02/24/22 09:42 Nifedipine Xl 60 Mg Tab PO 60 mg QDAY LAITH Administration Ondansetron HCl 4 mg 02/17/22 21:14 Ondansetron 4 Mg/2 Ml Inj IV Q8H PRN Nausea And Vomiting Oxycodone/Acetaminophen 1 tab 02/17/22 21:14 02/21/22 11:32 Oxycodone /Acetaminophen 5-325mg Tab PO 1 tab Q6H PRN Administration Pain, Moderate (4-6) Sodium Chloride 10 ml 02/17/22 22:00 02/24/22 09:43 Sodium Chloride 0.9% 10 Ml Flush Syringe IV 10 ml BID LAITH Administration Sodium Chloride 10 ml 02/17/22 21:14 02/19/22 04:56 Sodium Chloride 0.9% 10 Ml Flush Syringe IV 10 ml PRN PRN Administration LINE FLUSH
[2022-02-25] MEDS: HEPARIN 5,000 UNIT/1 ML VIAL SUB-Q SCH (09:11)
[2022-02-25] MEDS: FAMOTIDINE 20 MG TAB PO SCH (09:11)
[2022-02-25] MEDS: NIFEdipine XL 60 MG TAB PO SCH (09:12)
[2022-02-25] MEDS: MAGNESIUM OXIDE 400 MG TAB PO SCH (09:12)
[2022-02-25] MEDS: LOSARTAN 50 MG TAB PO SCH (09:12)
[2022-02-25 11:30] LABS: BUN/Creatinine Ratio 13; Blood Urea Nitrogen 10 mg/dL (7-17); Calcium 9.5 mg/dL (8.4-10.2); Hemolysis Index 154
--- NOTE | 2022-02-25 12:57 | Progress Note ---
Assessment and Plan Assessment and plan: #Syncope and fall #Possible TIAruled out Unremarkable CT head noncontrast and CT angio head and neck TTE (02/18/2022) revealing EF 45% with normal-sized LV, normal to mildly decre ased LV systolic function, mild concentric LVH, mildly hypokinetic RV, normal LA, normal RA, aneurysmal atrial septum, RVSP is 46 mmHg, and unremarkable for PFO. Hemoglobin A1c 5.7. Lipid panel: Triglycerides 135, cholesterol 134, LDL 65, HDL 39 Will be unable to obtain MRI brain given pacemaker status. PT/OT recommending subacute rehab. Pending authorization for subacute rehab versus SNF placement. #Uncontrolled hypertensionresolved - home medications: Amlodipine 5 mg daily, metoprolol tartrate 25 mg twice daily - current medications: Nifedipine 60 mg daily, losartan 50 mg daily metoprolol tartrate 25 mg twice daily - SBP goal <160 and DBP goal <90 while inpatient - continue to monitor #Current pacemaker Currently functioning appropriately. No need for intervention. #Hypokalemiaresolved #Hypomagnesemia Patient refused IV repletion. Continue po supplementation. #Mild protein caloric malnutrition Albumin 3.4 Continue dietary supplementation #Advanced care planning -Disease education conducted, care plan discussed, diagnoses discussed, prognosis discussed, and patient acknowledges understanding with care plan -Time: +30 min #Discharge planning - Patient is pending authorization for subacute rehab versus SNF placement per family request - Case management has been made aware. History Interval history: No acute events overnight. Patient reports R sided neck pain. She declines i maging and PRN pain medications. She has no other acute complaints at this time. She is currently awaiting placement. Hospitalist Physical - Physical exam Narrative exam: GENERAL: Thin elderly woman. In no acute distress. HEENT: Normocephalic. Atraumatic. NECK: Neck NT to palpation CHEST/LUNGS: CTAB on room air HEART/CARDIOVASCULAR: RRR. No murmur, rubs or gallops appreciated. ABDOMEN: +BS. NT/ND. SKIN: No rashes noted. NEURO: No focal motor deficit. Follows all commands. MUSCULOSKELETAL: No joint effusion EXTREMITIES: No cyanosis, clubbing or edema. PSYCH: Cooperative. AAOx3. - Constitutional Vitals: Temp Pulse Resp BP Pulse Ox 98.2 F 50 L 18 169/66 96 02/25/22 03:16 02/25/22 03:16 02/25/22 10:00 02/25/22 03:16 02/25/22 10:00 General appearance: Present: no acute distress, well-nourished, other (Demented at baseline) HEART Score - HEART Score Age: > 65 Risk factors: No known risk factors Troponin: Troponin T < 0.010 ng/mL (0.00-0.029) 02/17/22 17:13 Troponin: < normal limit - Critical Actions Critical Actions: 0-3 pts:0.9-1.7%risk of adverse cardiac event.Candidate for discharge Results - Labs CBC & Chem 7: 02/18/22 05:24 02/25/22 10:25 Labs: Laboratory Last Values WBC 7.8 K/mm3 (4.5-11.0) 02/18/22 05:24 RBC 5.14 M/mm3 (3.65-5.03) H 02/18/22 05:24 Hgb 14.4 gm/dl (10.1-14.3) H 02/18/22 05:24 Hct 45.0 % (30.3-42.9) H 02/18/22 05:24 MCV 88 fl (79-97) 02/18/22 05:24 MCH 28 pg (28-32) 02/18/22 05:24 MCHC 32 % (30-34) 02/18/22 05:24 RDW 14.1 % (13.2-15.2) 02/18/22 05:24 Plt Count 290 K/mm3 (140-440) 02/18/22 05:24 Lymph % (Auto) 27.0 % (13.4-35.0) 02/18/22 05:24 Mobile % (Auto) 10.0 % (0.0-7.3) H 02/18/22 05:24 Eos % (Auto) 2.4 % (0.0-4.3) 02/18/22 05:24 Baso % (Auto) 0.9 % (0.0-1.8) 02/18/22 05:24 Lymph # (Auto) 2.1 K/mm3 (1.2-5.4) 02/18/22 05:24 Mobile # (Auto) 0.8 K/mm3 (0.0-0.8) 02/18/22 05:24 Eos # (Auto) 0.2 K/mm3 (0.0-0.4) 02/18/22 05:24 Baso # (Auto) 0.1 K/mm3 (0.0-0.1) 02/18/22 05:24 Seg Neutrophils % 59.7 % (40.0-70.0) 02/18/22 05:24 Seg Neutrophils # 4.6 K/mm3 (1.8-7.7) 02/18/22 05:24 PT 14.7 Sec. (12.2-14.9) 02/17/22 17:13 INR 1.03 (0.87-1.13) 02/17/22 17:13 APTT 29.6 Sec. (24.2-36.6) 02/17/22 17:13 VBG pH 7.374 (7.320-7.420) 02/17/22 17:13 Sodium 139 mmol/L (137-145) 02/25/22 10:25 Potassium 5.2 mmol/L (3.6-5.0) H D 02/25/22 10:25 Chloride 103.4 mmol/L (98-107) 02/25/22 10:25 Carbon Dioxide 22 mmol/L (22-30) 02/25/22 10:25 Anion Gap 19 mmol/L 02/25/22 10:25 BUN 10 mg/dL (7-17) 02/25/22 10:25 Creatinine 0.8 mg/dL (0.6-1.2) 02/25/22 10:25 Estimated GFR > 60 ml/min 02/25/22 10:25 BUN/Creatinine Ratio 13 % 02/25/22 10:25 Glucose 104 mg/dL (65-100) H 02/25/22 10:25 POC Glucose 104 mg/dL (70-105) 02/18/22 07:56 Hemoglobin A1c 5.7 % (4-6) 02/18/22 05:24 Calcium 9.5 mg/dL (8.4-10.2) 02/25/22 10:25 Magnesium 1.90 mg/dL (1.7-2.3) 02/18/22 17:35 Total Bilirubin 0.30 mg/dL (0.1-1.2) 02/18/22 05:24 AST 12 units/L (5-40) 02/18/22 05:24 ALT < 5 units/L (7-56) L 02/18/22 05:24 Alkaline Phosphatase 81 units/L (35-129) 02/18/22 05:24 Total Creatine Kinase 48 units/L (30-135) 02/17/22 17:13 CK-MB (CK-2) 1.4 ng/mL (0.0-4.0) 02/17/22 17:13 CK-MB (CK-2) Rel Index 2.9 (0-4) 02/17/22 17:13 Troponin T < 0.010 ng/mL (0.00-0.029) 02/17/22 17:13 Total Protein 6.4 g/dL (6.3-8.2) 02/18/22 05:24 Albumin 3.4 g/dL (3.9-5) L 02/18/22 05:24 Albumin/Globulin Ratio 1.1 % 02/18/22 05:24 Triglycerides 135 mg/dL (2-149) 02/18/22 17:35 Cholesterol 134 mg/dL (50-199) 02/18/22 17:35 LDL Cholesterol Direct 65 mg/dL (50-130) 02/18/22 17:35 HDL Cholesterol 39 mg/dL (40-59) L 02/18/22 17:35 Cholesterol/HDL Ratio 3.43 % 02/18/22 17:35 TSH 2.670 mlU/mL (0.270-4.200) 02/17/22 17:13 Free T4 1.15 ng/dL (0.76-1.46) 02/17/22 17:13 Coronavirus (PCR) Negative (Negative) 02/20/22 11:18 Villeda/IV: Voiding Method Toilet Active Medications - Current Medications Current Medications: Generic Name Dose Route Start Last Admin Trade Name Freq PRN Reason Stop Dose Admin Acetaminophen 650 mg 02/17/22 21:14 Acetaminophen 325 Mg Tab PO Q4H PRN Pain MILD(1-3)/Fever >100.5/BOWERS Famotidine 20 mg 02/17/22 22:00 02/25/22 09:11 Famotidine 20 Mg Tab PO 20 mg BID LAITH Administration Heparin Sodium (Porcine) 5,000 unit 02/17/22 22:00 02/25/22 09:11 Heparin 5,000 Unit/1 Ml Vial SUB-Q 5,000 unit Q12HR LAITH Administration Hydralazine HCl 10 mg 02/18/22 01:22 02/19/22 04:54 Hydralazine 20 Mg/1 Ml Inj IV 10 mg Q6H PRN Administration Hypertension Losartan Potassium 50 mg 02/19/22 10:00 02/25/22 09:12 Losartan 50 Mg Tab PO 50 mg QDAY LAITH Administration Magnesium Oxide 400 mg 02/21/22 10:00 02/25/22 09:12 Magnesium Oxide 400 Mg Tab PO 400 mg QDAY LAITH Administration Morphine Sulfate 2 mg 02/17/22 21:14 Morphine 2 Mg/1 Ml Inj IV Q4H PRN Pain, Moderate (4-6) Nifedipine 60 mg 02/19/22 10:00 02/25/22 09:12 Nifedipine Xl 60 Mg Tab PO 60 mg QDAY LAITH Administration Ondansetron HCl 4 mg 02/17/22 21:14 Ondansetron 4 Mg/2 Ml Inj IV Q8H PRN Nausea And Vomiting Oxycodone/Acetaminophen 1 tab 02/17/22 21:14 02/21/22 11:32 Oxycodone /Acetaminophen 5-325mg Tab PO 1 tab Q6H PRN Administration Pain, Moderate (4-6) Sodium Chloride 10 ml 02/17/22 22:00 02/25/22 09:13 Sodium Chloride 0.9% 10 Ml Flush Syringe IV 10 ml BID LAITH Administration Sodium Chloride 10 ml 02/17/22 21:14 02/19/22 04:56 Sodium Chloride 0.9% 10 Ml Flush Syringe IV 10 ml PRN PRN Administration LINE FLUSH
--- NOTE | 2022-02-25 13:35 | Discharge Summary ---
Providers - Providers Date of Admission: 02/17/22 21:14 Date of discharge: 02/25/22 Attending physician: NILS BUCHANAN MD 02/18/22 11:24 Physical Therapy Evaluation and Treat [CONS] Routine Comment: Pt eval and treat Reason For Exam: debility 02/18/22 11:25 Occupational Therapy Evaluate and Treat [CONS] Routine Comment: OT eval and treat Reason For Exam: bebility Primary care physician: ANA MURRAY MD Hospitalization Reason for admission: syncope Condition: Fair Hospital course: Patient is a 86-year-old female with history of pacemaker who was brought in for syncopal episode. Initial CT of the head showed no acute abnormality. Echocardiogram showed mild diastolic dysfunction, LVEF 45% and no PFO. 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 Patient was evaluated by physical therapy and decision was made for patient to go to a nursing home facility. Once she is clinically stable, she was discharged to facility. Disposition: [facility] Final Discharge Diagnosis (Prints w/discharge instructions): Syncopal episode, unspecified. TIA ruled out. Uncontrolled hypertension. Pacemaker. Hypokalemia. Hypomagnesemia. Mild protein calorie malnutrition Time spent for discharge: 30 minutes Core Measure Documentation - Palliative Care Palliative Care/ Comfort Measures: Not Applicable - Core Measures Any of the following diagnoses?: none Exam - Physical Exam Narrative exam: GENERAL: Thin elderly woman. In no acute distress. HEENT: Normocephalic. Atraumatic. NECK: Neck NT to palpation CHEST/LUNGS: CTAB on room air HEART/CARDIOVASCULAR: RRR. No murmur, rubs or gallops appreciated. ABDOMEN: +BS. NT/ND. SKIN: No rashes noted. NEURO: No focal motor deficit. Follows all commands. MUSCULOSKELETAL: No joint effusion EXTREMITIES: No cyanosis, clubbing or edema. PSYCH: Cooperative. AAOx3. - Constitutional Vitals: Temp Pulse Resp BP Pulse Ox 98.2 F 50 L 18 169/66 96 02/25/22 03:16 02/25/22 03:16 02/25/22 10:00 02/25/22 03:16 02/25/22 10:00 Plan Care Plan Goals: Please follow up with your primary care provider as needed. Follow up with: ANA MURRAY MD [Primary Care Provider] - 3-5 Days Prescriptions: Losartan [Cozaar] 50 mg PO QDAY 30 Days #30 tablet NIFEdipine XL [Procardia Xl] 60 mg PO QDAY 30 Days #30 tablet
[2022-02-25 16:46] VITALS: BP 157/62
== END 2022-02-25 19:30 | DRG 312 ==
LOC: ED 15:34 → EDBD 15:34 → 4A 21:14
PROVIDERS: ADMIT Internal Medicine; ATTEND Student in an Organized Health Care Education/Training Program
DX: R55 Syncope and collapse (principal); E44.1 Mild protein-calorie malnutrition; E87.6 Hypokalemia; Z68.25 Body mass index [BMI] 25.0-25.9, adult; Z20.822 Contact with and (suspected) exposure to COVID-19; Z95.0 Presence of cardiac pacemaker; E83.42 Hypomagnesemia; W18.39XA Other fall on same level, initial encounter; Y93.89 Activity, other specified; Y92.89 Other specified places as the place of occurrence of the external cause; Y99.8 Other external cause status
CPT/HCPCS: 36415; 70450; 70496; 70498; 80048; 80053; 80061; 82550; 82553; 82805; 82962; 83036; 83735; 84132; 84439; 84443; 84484; 85025; 85610; 85730; 93005; 93306; 99285; G0378; C8929; J0360; J1644; J3475; Q9967; U0003